=== PATIENT | male | born 1955 | race Caucasian/White ===

== ENCOUNTER 2020-03-26 00:12 | Outpatient (CLI) | payer MEDICARE, OTHER, SELFPAY ==
[2020-03-26 17:48] LABS: SARS-CoV-2 RNA PCR Negative
== END 2020-03-26 00:13 | disposition home or self-care (01) ==
LOC: ANHCOVIDDT 00:13
PROVIDERS: PCP Internal Medicine; Visit Provider Orthopaedic Surgery
DX: Z01.818 Encounter for other preprocedural examination (principal); Z11.59 Encounter for screening for other viral diseases
CPT/HCPCS: 87635; C9803; U0003

== ENCOUNTER 2020-03-26 08:43 | Outpatient (CLI) | payer MEDICARE, OTHER, SELFPAY ==
[2020-03-26 09:09] LABS: Blood Urea Nitrogen 26 mg/dL (9-20); Calcium 9.1 mg/dL (8.4-10.2); Carbon Dioxide 30 mmol/L (22-30); Chloride 103 mmol/L (98-107); Estimated Glomerular Filt Rate > 60; Glucose 129 mg/dL (75-110); Potassium 4.4 mmol/L (3.4-5.0); Sodium 138 mmol/L (137-145)
--- NOTE | 2020-03-26 09:11 | ECG_ITS ---
SINUS RHYTHM NORMAL ECG Electronically Signed On 03-26-2020 9:15:47 CDT by Rafa Hendrix D.O. NO PREVIOUS ECG AVAILABLE FOR COMPARISON [facility]
== END 2020-03-26 08:44 | disposition home or self-care (01) ==
LOC: ANHLAB 08:44
PROVIDERS: PCP Internal Medicine; Visit Provider Anesthesiology
DX: Z01.818 Encounter for other preprocedural examination (principal); E11.9 Type 2 diabetes mellitus without complications; Z20.828 Contact with and (suspected) exposure to other viral communicable diseases
CPT/HCPCS: 36415; 80048; 87635; 93005; C9803; U0003

== ENCOUNTER 2020-03-29 00:13 | Day surgery (SDC) | payer MEDICARE, OTHER, SELFPAY ==
[2020-03-16 13:33] VITALS: BMI 32.7
[2020-03-29] VITALS (7 sets, daily range): BP systolic 104–132; BP diastolic 62–72; PULSE 67–79; RESP 18–20; TEMP 36.5–36.8; O2SAT 95–100
--- NOTE | 2020-03-29 10:10 | WPDHPUPDATE1 ---
History and Physical Update Update Date/Time: 03/29/20 10:10 History and Physical has been reviewed, including an updated exam of the patient. There are NO changes in the patient's condition. Risks, benefits, and alternatives have been discussed and questions answered. Patient agrees to proceed with procedure.
[2020-03-29] MEDS: LACTATED RINGERS 1,000 ML 30 ML IV CONT ×2 (10:30→13:04)
[2020-03-29 10:43] LABS: Glucose Point of Care 117 (65-105)
--- NOTE | 2020-03-29 10:51 | WPDANESEPPF ---
Anes - Initial Pre Proc Eval Procedure: Operation Date: 03/29/20 11:30 Proposed Procedures p Left Rotator Cuff Repair With Distal Clavicle Excision - Anoop Dumont MD Date/Time: 03/29/20 10:51 Surgeon: Anoop Dumont MD Pre Op Diagnosis: Left Rotator Cuff Tear With AC Arthritis Patient Data Age: 65 Gender: M Height: 1.68 m Weight: 92 kg Allergies Allergy/AdvReac Type Severity Reaction Status Date / Time No Known Allergies Allergy Unverified 03/29/20 10:49 Home Medications Medication Instructions Recorded Confirmed Type aspirin 81 mg tablet,delayed 81 mg PO DAILY 02/11/20 03/23/20 History release metformin 500 mg tablet 500 mg PO BID 02/11/20 03/23/20 History metoprolol succinate 100 mg 100 mg PO DAILY 02/11/20 03/23/20 History capsule sprinkle, ext. release 24 hr nortriptyline 25 mg capsule 25 mg PO DAILY 02/11/20 03/23/20 History pantoprazole 40 mg tablet,delayed 40 mg PO QAM 02/11/20 03/23/20 History release rosuvastatin 40 mg tablet 40 mg PO DAILY 02/11/20 03/23/20 History vitamin B12 500 mcg-folic acid 400 1 tablet PO DAILY 02/11/20 03/23/20 History mcg tablet chlorthalidone 12.5 mg PO DAILY 03/16/20 03/23/20 History famotidine 20 mg PO HS 03/16/20 03/23/20 History lisinopril 40 mg PO DAILY 03/16/20 03/23/20 History Laboratory Tests 03/29/20 10:37 POC Capillary Glucose 117 mg/dl H mg/dl (65-105) Patient hx anesthesia problems: none Family hx anesthesia problems: none PMFSH Past Medical History Medical History (Updated 03/29/20 @ 08:07 by Xavier Kiser DO) Cardiac arrhythmia Diabetes last A1C 6.7 Hyperlipidemia Hypertension Surgical History Surgical History Hx of tonsillectomy Social History Social History Smoking status: Never smoker Alcohol intake: never Additional living arrangements comments: - [place] 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 Questions were solicited and answers provided to the satisfaction of the patient/family/POA.
--- NOTE | 2020-03-29 11:15 | WPDANESPNB ---
Anes - Peripheral Nerve Block Date/Time: 03/29/20 11:15 I have discussed with the patient/family/POA the placement of a peripheral nerve block for post-operative pain management, including associated risks, benefits, complications, and side effects. Alternative methods of post-operative analgesia were detailed. Questions were solicited and answers provided to the satisfaction of the patient/family/POA. Time-Out: A pre-procedural Time-Out was completed immediately before starting the procedure and confirmed: Patient Identification, Site, Procedure, Patient Position and the Availability of Requisite Equipment. Clinical Indications: Acute post-operative pain management requested by the operative surgeon. Nerve Block Insertion Note Anes-nerve block: interscalene left Patient position: supine Skin prep: chlorhexidine Needle: 22 gauge, stimulating, insulated echogenic needle. Needle length: 50 mm Technique: ultrasound Injectate: bupivacaine 0.5% with epi 5 mcg/ml (30cc) Observations: tolerated well Complications: none Procedure start time:: 1112 Procedure end time:: 1114
[2020-03-29] MEDS: ceFAZolin 2 GM/D5W 50 ML 2 GM/50 ML BAG IVPB (11:39)
[2020-03-29] MEDS: BUPIVACAINE/EPINEPHRINE 0.25% 50 ML VIAL INFILTRATE (12:23)
--- NOTE | 2020-03-29 13:07 | PM.PROC ---
Procedure Note - Detailed Date of procedure: 03/29/20 Pre-op diagnosis: Left Rotator Cuff Tear With AC Arthritis Post-op diagnosis: same Procedure performed: Left shoulder acromioplasty, distal clavicle excision and open repair of the rotator cuff. Description of procedure: Patient was identified and proper site identified. In the preop holding area the anesthesia team performed a left upper extremity block. He was then taken to the operating room and transferred to the or table taking care to pad the torso and extremities. After general anesthetic induction and intubation, he was put in a semi beach chair position in the usual manner for a left shoulder procedure. His head was secured taking care to neither rotate nor extend the head and neck. The left upper extremity was prepped and draped free in usual sterile fashion. The subcutaneous tissue in the area of the incision was injected with 10 cc of 0.25% Marcaine and epinephrine solution. An oblique anterior incision was made extending from the AC joint distally in line with the fibers of the deltoid. Subcutaneous tissue was sharply dissected down to the deltoid fascia. The deltoid was dissected off the anterior portion of the acromion in the distal end of the clavicle. A 2 cm split was made at the junction between the anterior and middle thirds of the deltoid. Using the microsagittal saw the last 8 mm of clavicle removed. The saw was also used to perform the acromioplasty and then the undersurface of the acromion was rasped smooth. There was abundant thickened bursa overlying the rotator cuff. This was sharply debrided long for a full inspection of the cuff. The anterior most portion of the supraspinatus was markedly thin with a palpable defect. This was released from the greater tuberosity. The tendon was freshened up and prepared for the repair. Prominent portion of the greater tuberosity was removed as well. The repair was carried out with 2. Ethibond suture passed through a bony bridge. This gave a pelletier repair which was stable as the shoulder was taken through range of motion. This was able to be accomplished with his arm at his side. The wound was irrigated with sterile NaCl solution. The deltoid was repaired back to the acromion with 2. Ethibond suture passed through bone and the remainder of the deltoid repair carried out with 2. Vicryl. Subcutaneous tissue was reapproximated with 0. V lock, 2. Strata fix and then tissue adhesive used for the skin. Sterile dressing was applied. There were no known intraoperative complications, and perioperative antibiotics were administered. Anesthesia: GETA Surgeon: Anoop Dumont MD Estimated blood loss (mL): 20 Drains: No Packing: No Pathology: none sent Complications: No immediate complications Condition: stable Disposition: PACU
[2020-03-29 15:43] LABS: Glucose Point of Care 110 (65-105)
== END 2020-03-29 14:50 | disposition home or self-care (01) ==
PROVIDERS: PCP Internal Medicine; Visit Provider Orthopaedic Surgery
PROC: (CPT 23420; principal; 2020-03-29 11:30)
DX: M75.102 Unspecified rotator cuff tear or rupture of left shoulder, not specified as traumatic (principal); G89.18 Other acute postprocedural pain; I10 Essential (primary) hypertension; E78.5 Hyperlipidemia, unspecified; E11.9 Type 2 diabetes mellitus without complications; Z79.82 Long term (current) use of aspirin; Z79.84 Long term (current) use of oral hypoglycemic drugs; E66.9 Obesity, unspecified; Z68.33 Body mass index [BMI] 33.0-33.9, adult
CPT/HCPCS: 23420; 23120; 64415; A4565; J0330; J0690; J1100; J1170; J2001; J2250; J2370; J2405; J2704; J3010; J7120

== ENCOUNTER 2020-06-01 16:00 | Outpatient (RCR) | payer MEDICARE, OTHER, SELFPAY ==
--- NOTE | 2020-03-31 13:38 | PTOPEVAL ---
Thank you for referring Anoop Lopez to [facility]. Please review, sign, date and return this plan of care LUCIANA. Pt referred to physical therapy following left rotator cuff surgery. He demonstrates impairments consistent with post-op impairments of muscle weakness, decreased left UE motion, and decreased arm function with daily activities. He requires additional skilled therapy 2x/wk x 12 wk to improve UE function. I agree with and certify that the following plan of care is medically necessary. Referring Physician Date Attending Provider: Anoop Dumont MD *PT Outpatient Evaluation Start: 03/31/20 12:36 Freq: Status: Active Protocol: Document 03/31/20 12:33 CAP (Rec: 03/31/20 13:30 CAP [id number]) Therapy Assessment Status Assessment Status Assessment Status Evaluation Outpatient Past Medical History Past Medical History Source of Past Medical History Patient,Recalled from Previous Visit, Confirmed with Patient /Family Neurological History Hx Neurological Disorders No Significant History Cardiovascular History Hx Hypercholesterolemia Yes Hx Hypertension Yes Hx Irregular Heartbeat Yes: SINUS TACH ONCE 3 YRS AGO ? ANTIHISTAMINE REACTION Respiratory History Hx Respiratory Disorders No Significant History Gastrointestinal History Hx Gastrointestinal Disorders No Significant History Genitourinary History Hx Genitourinary Disorders No Significant History Musculoskeletal History Hx Fractures Yes: LEFT TIBIAL FRACTURE AT 12 Hx Orthopedic Surgery Yes: left RTC repair 03/29/20 Hx Other Musculoskeletal Disorders Yes: LEFT ROTATOR CUFF TEAR Hematological History Hx Hematological Disorders No Significant History Endocrine History Hx Diabetes Yes HEENT History Hx Tonsillectomy Yes Integumentary History Hx Other Skin Disorders Yes: SKIN TAGS Reproductive History Hx Reproductive Disorders No Significant History Psychosocial History Hx Psychiatric Disorders No Significant History Anesthesia History Hx Anesthesia Reactions No Significant History Evaluation Information Problem Diagnosis left RTC tear Onset 2-3 years Cause unknown Additional Evaluation Detail s/p RTC repair 03/29/20 Subjective Information He has been having shoulder Query Text:As Reported By Patient/ problems for 2-3 years. He Family arrived to therapy without his sling. He was not given a HEP after his surgery. He currently requires assistance with ADL's due to
[2020-04-26 11:04] VITALS: BP_SYST 121
--- NOTE | 2020-04-26 14:47 | PTOPEVAL ---
Thank you for referring Anoop Lopez to [facility]. Please review, sign, date and return this plan of care LUCIANA. Pt has received 9 therapy visits to address UE impairments related to post-surgery recovery. He is progressing towards his therapy goals. Cont therapy 2x/wk x 8-10 wk. I agree with and certify that the following plan of care is medically necessary. Referring Physician Date Attending Provider: Anoop Dumont MD PT Re-evaluation *PT Outpatient Evaluation Start: 03/31/20 12:36 Freq: Status: Active Protocol: Document 04/26/20 11:04 ELBERT (Rec: 04/26/20 11:23 ELBERT [id number]) Therapy Assessment Status Assessment Status Assessment Status Re-evaluation Evaluation Information Problem Diagnosis left RTC tear Onset 2-3 years Cause unknown Additional Evaluation Detail s/p RTC repair 03/29/20 He has been having shoulder problems for 2-3 years. Subjective Information Reports he is using the arm Query Text:As Reported By Patient/ more with activties at home. Family He is able to perform his ADL' s without assistance. He is able to perform reaching activities to shoulder level without restrictions. He has not tried overhead reaching. He is sleeping better without increased pain. He does not require assistance to get in/ out of bed. He has not tried any yardwork. He has a f/u with on . Pain Assessment Timing of Pain Assessment Timing of Pain Assessment Re-assessment Pain Scale Pain Scale Used Numeric (1 - 10) Self Report Pain Assessment Left Shoulder(s) Reported Pain Level 0 Pain Description Aching Pain Frequency Intermittent Lowest Pain Intensity 0 Greatest Pain Intensity 3 Pain Score Pain Score 0: Self Report Upper Extremity Range of Motion Scapular/ Shoulder Range of Motion Left Scapular: Retraction Hypomobile Scapular: Protraction Hypomobile Scapular Downward Rotation Hypomobile Scapular Upward Rotation Hypomobile Shoulder Flexion - Active 140 Shoulder Flexion - Passive 142 Shoulder Extension - Active 40 Shoulder Abduction - Active 104 Shoulder Abduction - Passive 121 Shoulder Medial Rotation - Passive 70 Shoulder Lateral Rotation - Passive 20 Scapular/Shoul
[2020-05-20 12:33] VITALS: BP_SYST 153
--- NOTE | 2020-05-20 13:26 | PTOPEVAL ---
Thank you for referring Anoop Lopez to [facility]. Please review, sign, date and return this plan of care LUCIANA. Pt has received 15 therapy visits to address left shoulder impairments related to shoulder surgery. He has progress with all UE activities, range, and strength. He has achieved most of his therapy goals. Cont PT 1x/wk x 3 wk. I agree with and certify that the following plan of care is medically necessary. Referring Physician Date Attending Provider: Anoop Dumont MD PT re-assessment note *PT Outpatient Evaluation Start: 03/31/20 12:36 Freq: Status: Active Protocol: Document 05/20/20 12:33 CAP (Rec: 05/20/20 12:56 CAP [id number]) Therapy Assessment Status Assessment Status Assessment Status Re-evaluation Evaluation Information Problem Diagnosis left RTC tear Onset 2-3 years Cause unknown Additional Evaluation Detail s/p RTC repair 03/29/20 He has been having shoulder problems for 2-3 years. Subjective Information Reports he is using the arm Query Text:As Reported By Patient/ more with activties at home Family with only mild soreness and acheness. He denies any problems with reaching activities to all directions. Denies any problems with any yardwork. order to cont therapy for 1x/wk x 3 wk, but to cont with stretching 2x/day and strengthening 2x/wk. Pt is to RTW on 06/03/20. Pain Assessment Timing of Pain Assessment Timing of Pain Assessment Re-assessment Pain Scale Pain Scale Used Numeric (1 - 10) Self Report Pain Assessment Left Shoulder(s) Reported Pain Level 0 Pain Frequency Intermittent Lowest Pain Intensity 0 Greatest Pain Intensity 2 Pain Score Pain Score 0: Self Report Upper Extremity Range of Motion Scapular/ Shoulder Range of Motion Left Scapular: Retraction Hypomobile Scapular: Protraction Hypomobile Scapular Downward Rotation Hypomobile Scapular Upward Rotation Hypomobile Shoulder Flexion - Active 148 Shoulder Flexion - Passive 160 Shoulder Extension - Active 40 Shoulder Abduction - Active 144 Shoulder Abduction - Passive 153 Shoulder Medial Rotation - Active 80 Shoulder Medial Rotation - Active T12 Query Text:Reach Behind the Back Shoulder Lateral Rotation - Active 40 Shoulder Lateral Rotation - Passive 53 Shoulder
--- NOTE | 2020-06-01 16:39 | PTOPEVAL ---
Thank you for referring Anoop Lopez to [facility].? Pt has reached maximal potential with skilled therapy services with all goals achieved except 1. He is indep with his HEP and understanding of progression. Discharge skilled therapy services as this time. Please review, sign, date and return this plan of care LUCIANA. I agree with and certify that the following plan of care is medically necessary. Referring Physician Date Admitting Provider: Attending Provider: Anoop Dumont MD Discharge Note *PT Outpatient Evaluation Start: 03/31/20 12:36 Freq: Status: Active Protocol: Document 06/01/20 16:05 ELBERT (Rec: 06/01/20 16:33 ELBERT [id number]) Therapy Assessment Status Assessment Status Assessment Status Discharge Evaluation Information Problem Diagnosis left RTC tear Onset 2-3 years Cause unknown Additional Evaluation Detail s/p RTC repair 03/29/20 He has been having shoulder problems for 2-3 years. Subjective Information He reports he is performing Query Text:As Reported By Patient/ most of his normal activities Family without difficulty or pain. He is able to sleep on the left side without pain. Pain Assessment Timing of Pain Assessment Timing of Pain Assessment Re-assessment Pain Scale Pain Scale Used Numeric (1 - 10) Self Report Pain Assessment Left Shoulder(s) Reported Pain Level 0 Lowest Pain Intensity 0 Greatest Pain Intensity 0 Pain Score Pain Score 0: Self Report Upper Extremity Range of Motion Scapular/ Shoulder Range of Motion Left Shoulder Flexion - Active 160 Shoulder Extension - Active 50 Shoulder Abduction - Active 160 Shoulder Medial Rotation - Active 85 Shoulder Medial Rotation - Active T10 Query Text:Reach Behind the Back Shoulder Lateral Rotation - Active 70 Shoulder Lateral Rotation - Active T1 Query Text:Reach Behind the Head Scapular/Shoulder Range of Motion Soft Tissue Restriction Limitations Scapular/Shoulder Range of Motion rotation measured supine with Comments GH joint abd 80 dg Upper Extremity Muscle Strength Testing Scapular/Shoulder Right Scapular Retraction - Middle Trapezius 4- Good - Scapular Retraction - Lower Trapezius 3 Fair Left Scapular Retraction - Middle Trapezius 4- Good - Scapular Retraction - Lower Trapezius 3 Fair Shoulder Flexion Strength 5 Normal Shoulder Extension Strength 5 Normal Shoulder Abduction Strength 4+ Good + Shoulder Medial Rotation Strength 5 Normal Shoulder Lateral Rotation Strength 5 Normal Palpation Assessment Palpation Palpation no
== END 2020-06-02 12:38 | disposition home or self-care (01) ==
LOC: ANHPT 16:00
PROVIDERS: PCP Internal Medicine; Visit Provider Orthopaedic Surgery
DX: M25.512 Pain in left shoulder (principal); M75.102 Unspecified rotator cuff tear or rupture of left shoulder, not specified as traumatic
CPT/HCPCS: 97110; 97140; 97162

== ENCOUNTER 2021-12-06 09:59 | Emergency (ER) | payer MEDICARE, SELFPAY ==
--- NOTE | 2021-12-06 10:07 | PC.NURSE ---
Patient walks out of ED without difficulty and in no distress. patient states I am going to another hospital.
== END 2021-12-07 03:05 | disposition left against medical advice (07) ==
LOC: ANHED 10:12
PROVIDERS: PCP Physician Assistant
DX: Z53.21 Procedure and treatment not carried out due to patient leaving prior to being seen by health care provider (principal)
CPT/HCPCS: 99199

== ENCOUNTER 2023-05-21 01:37 | Observation (INO) | payer MEDICARE, SELFPAY ==
[2023-05-21] VITALS (23 sets, daily range): BP systolic 86–160; BP diastolic 48–78; PULSE 80–120; RESP 16–24; TEMP 36.1–37.7; O2SAT 90–100; BMI 32.3
--- NOTE | ~2023-05-21 | CT_ITS ---
CT of the Abdomen and Pelvis: Indication: Abdominal pain Technique: 2.5 mm axial scans were obtained through the abdomen and pelvis following intravenous adm inistration of 100 cc of Omnipaque 350. Dose reduction technique was used on this scan by utilizing a utomated exposure control and iterative reconstruction technique. The dose-length product (DLP) was 1 079.16 mGy-cm. COMPARISON: 10/24/2010 Findings: Scans through the lung bases are unremarkable. The liver, spleen, pancreas, adrenals and kidneys are within normal limits. Multiple gallstones are p resent. Possible minimal gallbladder wall thickening. There are atherosclerotic calcifications of the aorta. No lymphadenopathy. No bowel obstruction or bowel wall thickening. There is no evidence to suggest acute appendicitis. Images through the pelvis were performed. Urinary bladder unremarkable. Prostate gland is enlarged. N o ascites. Impression: Cholelithiasis. Suspected superimposed acute cholecystitis. Correlate clinically. Consider HIDA scan as indicated. Reviewed, dictated and finalized at location . Impression: Cholelithiasis. Suspected superimposed acute cholecystitis. Correlate clinicall y. Consider HIDA scan as indicated.
--- NOTE | ~2023-05-21 | XR_ITS ---
EXAMINATION: XR chest 1V portable Exam Date/Time: 05/22/2023 22:15 CDT HISTORY: increased sob;on bipap,lap supriya 2 days ago;never smoker,HTN Comparison: 04/20/2017. RESULT: Lines, tubes, and devices: None. Lungs and pleura: Moderate diffuse reticular opacities. Ill-defined segmental right hilar opacificat ion. Streaky bibasilar opacities. Bilateral costophrenic angle blunting. Cardiomediastinal silhouette: Stable. Other: No acute osseous or upper abdominal finding. IMPRESSION: Ill-defined right hilar opacity may represent infection or aspiration. Moderate interstitial edema wi th bilateral effusions. Bibasilar atelectasis/consolidation. Reviewed, dictated and finalized at location K. IMPRESSION: Ill-defined right hilar opacity may represent infection or aspiration. Moderate interstitial edema with bilateral effusions. Bibasilar atelectasis/consolidati on.
[2023-05-21 02:00] LABS: Basophils Absolute Auto 0.1 K/mm3 (0.0-0.1); Basophils Percent Auto 0.6 % (0.2-1.2); Eosinophils Absolute Auto 1.7 K/mm3 (0-0.3); Eosinophils Percent Auto 11.6 % (0-4.4); Hematocrit 43.5 % (42.0-52.0); Hemoglobin 14.5 g/dL (14.0-18.0); Immature Granulocyte Absolute 0.06 K/mm3 (0.00-0.031); Immature Granulocyte Percent A 0.4 % (0-0.5); Lymphocytes Absolute Auto 3.16 K/mm3 (0.9-3.2); Lymphocytes Percent Auto 21.9 % (18.3-44.2); Mean Corpuscular HGB Conc 33.3 g/dl (32-36); Mean Corpuscular Hemoglobin 29.2 pg (26-34); Mean Corpuscular Volume 87.5 fl (80-100); Mean Platelet Volume 9.9 fl (7.4-10.4); Monocytes Absolute Auto 1.3 K/mm3 (0.1-0.6); Neutrophils Absolute Auto 8.2 K/mm3 (1.3-6.7); Neutrophils Percent Auto 56.5 % (45.5-73.1); Platelet Count Result 228 k/mm3 (150-375); Red Blood Count 4.97 M/mm3 (4.6-6.20); Red Cell Distribution Width 13.5 % (11.5-14.5); White Blood Count 14.4 K/mm3 (4.5-10.0)
--- NOTE | 2023-05-21 02:07 | ECG_ITS ---
Measurements Intervals [place] Rate: 76 P: 50 TN: 158 QRS: 51 QRSD: 106 T: -29 QT: 360 QTc: 405 Interpretive Statements SINUS RHYTHM ST AND T-WAVE ABNORMALITY, CONSIDER ISCHEMIA ABNORMAL ECG COMPARED TO ECG 03/26/2020 09:11:56 T-WAVE ABNORMALITY NOW PRESENT Electronically Signed On 05-21-2023 10:26:42 CDT by Emeka Barbosa M.D.
--- NOTE | 2023-05-21 02:08 | ED.ABDPAIN ---
HPI - Abdominal Pain General Chief Complaint: Abdominal Pain <Gracy Cole PA-C - Last Filed: 05/21/23 04:13> Stated Complaint: upper abd pain <Gracy Cole PA-C - Last Filed: 05/21/23 04:13> Time Seen by Provider: 05/21/23 01:44 <Gracy Cole PA-C - Last Filed: 05/21/23 04:13> History of Present Illness HPI narrative: 68-year-old male reports for evaluation for epigastric abdominal pain and constipation. Patient states his last bowel movement was 4 days ago. He denies obstipation. Reports usually has a bowel movement every couple of days and this is abnormal for him. States he woke up around 2300 last night with significant epigastric abdominal pain which caused him to come to the ED. Reports in triage his pain was about 8-9 out of 10, and is currently a 5 out of 10 on my evaluation. He reports associated nausea, no vomiting. Patient reports a history of biliary colic and was sent to a surgeon in 2021. States at that time he was given the option to have a cholecystectomy, however was not having problems so opted out. He has not had any issues since. He does have a history of GERD and takes 40 mg of Protonix daily. He has not had an EGD. Denies chest pain or shortness of breath, known fever, back pain, urinary complaints. Denies history of abdominal surgeries. He also states his primary care recently switched his metformin to Farxiga last week. His last dose of metformin was 5 days ago when he started Farxiga 4 days ago. States since he started Farxiga, he has been feeling fatigued. Reports he put a message into the online portal to his PCP and is awaiting to hear back regarding possible medication changes. <Gracy Cole PA-C - Last Filed: 05/21/23 04:13> Related Data Home Medications: Home Medications Medication Instructions Recorded Confirmed aspirin 81 mg tablet,delayed 81 mg PO DAILY 02/11/20 05/21/23 release (Adult Aspirin Regimen) nortriptyline 25 mg capsule 35 mg PO QHS 02/11/20 05/21/23 pantoprazole 40 mg tablet,delayed 40 mg PO QAM 02/11/20 05/21/23 release rosuvastatin 40 mg tablet 40 mg PO DAILY 02/11/20 05/21/23 chlorthalidone 25 mg tablet 12.5 mg PO EVERY OTHER DAY 03/16/20 05/21/23 lisinopril 40 mg tablet 40 mg PO QHS 03/16/20 05/21/23 famotidine 20 mg tablet (Pepcid) 20 mg PO QHS 11/01/20 05/21/23 metoprolol succinate 100 mg 50 mg PO DAILY 11/01/21 05/21/23 capsule sprinkle, ext. release 24 hr dapagliflozin propanediol 10 mg 10 mg PO DAILY 05/21/23 05/21/23 tablet (Farxiga) nortriptyline 10 mg capsule 10 mg PO DAILY 05/21/23 05/21/23 rizatriptan 10 mg tablet 10 mg PO PRN PRN migraine 05/21/23 05/21/23 vitamin B complex (B 1 tablet PO DAILY 05/21/23 05/21/23 Complex-Vitamin B12 tablet) <Gracy Cole PA-C - Last Filed: 05/21/23 04:13> Allergies/Adverse Reactions: Allergies Allergy/AdvReac Type Severity Reaction Status Date / Time No Known Allergies Allergy Verified 05/21/23 01:37 <Gracy Cole PA-C - Last Filed: 05/21/23 04:13> Review of Systems Review of Systems: CONSTITUTIONAL: Denies fever, chills EYES: Denies visual changes, redness, or discharge. ENT: Denies rhinorrhea, congestion, sore throat, or otalgia. CARDIOVASCULAR: Denies chest pain, palpitations, or edema. RESPIRATORY: Denies cough or dyspnea. GASTROINTESTINAL: See HPI GENITOURINARY: Denies dysuria or hematuria. SKIN: Denies rash or itching. MUSCULOSKELETAL: Denies back pain, joint pain, or myalgia. NEUROLOGIC: Denies headache, numbness, dizziness, or weakness. PSYCHIATRIC: Denies anxiety or depression. <Gracy Cole PA-C - Last Filed: 05/21/23 04:13> PMFSH Past Medical History Medical History: Medical History Cardiac arrhythmia Diabetes last A1C 6.7 Hyperlipidemia Hypertension <Gracy Cole PA-C - Last Filed: 05/21/23 04:13> Surgical History Surgical History:
[2023-05-21 02:11] LABS: Alanine Aminotransferase 35 U/L (6-50); Albumin Level 4.4 g/dL (3.5-5.1); Alkaline Phosphatase 61 U/L (38-126); Anion Gap 6 mmol/L (8-16); Aspartate Amino Transferase 26 U/L (17-59); Bilirubin,Total 0.5 mg/dL (0.2-1.3); Blood Urea Nitrogen 28 mg/dL (9-20); Calcium 9.2 mg/dL (8.4-10.2); Carbon Dioxide 30 mmol/L (22-30); Chloride 99 mmol/L (98-107); Estimated CRCL calculation 46 ml/min; Estimated Glomerular Filt Rate 47; Glucose 192 mg/dL (65-110); Lipase 88 U/L (23-300); Potassium 3.5 mmol/L (3.4-5.0); Sodium 135 mmol/L (137-145)
[2023-05-21] MEDS: SODIUM CHLORIDE 0.9% IV 1,000 ML 999 ML IV CONT (02:11)
[2023-05-21] MEDS: ACETAMINOPHEN 500 MG TABLET 1000 MG PO (02:11)
[2023-05-21] MEDS: ONDANSETRON INJ 4 MG/2 ML VIAL IV PUSH ×2 (02:13→04:34)
[2023-05-21 02:22] LABS: Appearance Urine Clear (Clear); Bilirubin Urine Negative (Negative); Blood Urine Negative (Negative); Color Urine Yellow (Yellow); Glucose Urine UA 3+ mg/dL (Negative); Ketones Urine Negative (Negative); Leukocyte Esterase Ur Negative LEU/UL (Negative); Nitrate Urine Negative (Negative); Protein Urine Negative (Negative); Specific Grav Ur 1.034 (1.001-1.035); pH Urine 5.5 (5.0-9.0)
[2023-05-21 02:46] LABS: Add Urine Microscopic? NO
[2023-05-21 03:14] LABS: Troponin I < 0.012 ng/mL (0.000-0.034)
--- NOTE | 2023-05-21 03:49 | PC.NURSE ---
Patient stated that his pain is coming back and flaring up. Notified EDP Dr. Stone
[2023-05-21] MEDS: MORPHINE SULFATE (*CRX) 4 MG/ML INJ IV PUSH (03:56)
[2023-05-21] MEDS: HYDROmorphone HCL INJ (*CRX) 1 MG/ML SYR IV PUSH (04:35)
[2023-05-21] MEDS: PIPERACILLN/TAZ 3.375GM/NS50ML 3.375 GM/50 ML BAG IVPB ×3 (04:38→20:56)
--- NOTE | 2023-05-21 05:18 | PC.NURSE ---
Patient's SPO2 began to drop to 85-88%. Per patient he was diagnosed with sleep apnea in 2006 and uses a CPAP when he sleeps. Patient was then put on 3L/min O2 via nasal cannula. Patient's SPO2 now reading 97%.
[2023-05-21] MEDS: SODIUM CHLORIDE 0.9% IV 1,000 ML 125 ML IV CONT ×2 (06:01→12:53)
--- NOTE | 2023-05-21 06:41 | ADMGEN ---
This patient, Anoop Lopez, was admitted to [facility] Surg Room 303-01. Patient/family oriented to hospital policies and general routines including ID bracelet, bed and alarms, visiting hours, pain management, procedures, bathroom and other care routines, personal items, smoking policy, room service/diet, and visiting hours. Information on how to activate the Rapid Response Team has been discussed. Patient/Family are encouraged to report perceived risks to care and to ask questions if they do not understand what they are told or what they should do.
--- NOTE | 2023-05-21 10:17 | PM.IMHP ---
H&P: HPI History of Present Illness Date/Time: 05/21/23 10:17 Chief Complaint: Right-sided abdominal pain Narrative: 68-year-old male with past medical history of hypertension, diabetes who presented to ER with complaints of right-sided abdominal pain that started around 11:00 p.m. last night. Pain was localized, nonradiating. No associated nausea vomiting fever chills. Patient did have some chills in the ER. CT of the abdomen shows acute cholecystitis. General surgery consulted Review of Systems Review of Systems: CONSTITUTIONAL: Denies fever, chills EYES: Denies visual changes, redness, or discharge. ENT: Denies rhinorrhea, congestion, sore throat, or otalgia. CARDIOVASCULAR: Denies chest pain, palpitations, or edema. RESPIRATORY: Denies cough or dyspnea. GASTROINTESTINAL: See HPI GENITOURINARY: Denies dysuria or hematuria. SKIN: Denies rash or itching. MUSCULOSKELETAL: Denies back pain, joint pain, or myalgia. NEUROLOGIC: Denies headache, numbness, dizziness, or weakness. PSYCHIATRIC: Denies anxiety or depression. [facility] Past Medical History Medical History (Updated 05/21/23 @ 10:19 by Kenyon Zamarripa MD) Cardiac arrhythmia Diabetes last A1C 6.7 Hyperlipidemia Hypertension Surgical History Surgical History Hx of tonsillectomy Family History Family History Mother Hypertension Father Heart disease Grandparent Hypertension Diabetes mellitus Social History Social History Smoking status: Never smoker Alcohol intake: never Substance use: never Substance use type: does not use Lack of Transportation: No Lack of Food: Never True Current Housing: I Have Housing Concerned About Future Housing: No Difficulty Paying Gas/Electric Bills: No Difficulty Paying for Meds: No Currently Unemployed: No Education: Trade/Vocational Certificate Difficulty w/ Childcare or Family Care: No Living arrangements: with family Additional living arrangements comments: - Morena Cuff Occupation/Education: retired Additional occupation/education comments: retired [employer] Gender identity (if verbalized by the patient): Male Spiritual care concerns: No Meds Home Medications and Allergies Home Medications Medication Instructions Recorded Confirmed Type aspirin 81 mg tablet,delayed 81 mg PO DAILY 02/11/20 05/21/23 History release (Adult Aspirin Regimen) nortriptyline 25 mg capsule 35 mg PO QHS 02/11/20 05/21/23 History pantoprazole 40 mg tablet,delayed 40 mg PO QAM 02/11/20 05/21/23 History release rosuvastatin 40 mg tablet 40 mg PO DAILY 02/11/20 05/21/23 History chlorthalidone 25 mg tablet 12.5 mg PO EVERY OTHER DAY 03/16/20 05/21/23 History lisinopril 40 mg tablet 40 mg PO QHS 03/16/20 05/21/23 History famotidine 20 mg tablet (Pepcid) 20 mg PO QHS 11/01/20 05/21/23 History metoprolol succinate 100 mg 50 mg PO DAILY 11/01/21 05/21/23 History capsule sprinkle, ext. release 24 hr dapagliflozin propanediol 10 mg 10 mg PO DAILY 05/21/23 05/21/23 History tablet (Farxiga) nortriptyline 10 mg capsule 10 mg PO DAILY 05/21/23 05/21/23 History rizatriptan 10 mg tablet 10 mg PO PRN PRN migraine 05/21/23 05/21/23 History vitamin B complex (B 1 tablet PO DAILY 05/21/23 05/21/23 History Complex-Vitamin B12 tablet) Allergies Allergy/AdvReac Type Severity Reaction Status Date / Time No Known Allergies Allergy Verified 05/21/23 01:37 Vital Signs Vital Signs - 24 hr 05/21/23 01:42 05/21/23 02:07 05/21/23 03:32 Temperature 97.0 F L 98.1 F Pulse Rate 80 82 84 Respiratory Rate 16 21 H 23 H Blood Pressure 154/73 H 160/78 H 144/74 H Pulse Oximetry 97 100 95 Oxygen Delivery Room Air Oxygen Flow Rate 05/21/23 04:04 05/21/23 05:18 05/21/23 05:27 Temperature Pulse Rate 100 112 H
[2023-05-21 11:29] LABS: Glucose Point of Care 205 mg/dl (65-105)
--- NOTE | 2023-05-21 12:03 | PM.CNGS ---
Assessment and Plan Assessment and plan (1) Acute cholecystitis: Code(s): K81.0 - Acute cholecystitis Status: Acute Assessment and Plan: I have reviewed the CT and discussed the findings with the patient. He has evidence of acute calculous cholecystitis. He is feeling slightly better but is still having some constant right upper quadrant pain. I discussed options of trial of low-fat diet versus proceeding with surgery during this admission. Patient would like to proceed with surgery since this has happened multiple times in past. I have recommended proceeding with laparoscopic cholecystectomy, possible open. I discussed the procedure, risks, benefits, and alternatives. Questions were answered. (2) Diabetes: Code(s): E11.9 - Type 2 diabetes mellitus without complications Status: Acute (3) Hypertension: Code(s): I10 - Essential (primary) hypertension Status: Acute History of Present Illness Consult details Consult date: 05/21/23 Reason for consult: other (cholecystitis) Requesting physician: Karyn Stone MD Narrative: This is a 68-year-old man who I am asked to see for cholecystitis. He presented to the emergency department early this morning with abdominal pain that started around 11:00 p.m. last night. His pain is located in the right upper quadrant. He had eaten pizza for dinner prior to this. He did have an episode like this about 1-2 years ago, but he thinks that the imaging only showed gallbladder sludge. He did have discussions with the surgeon at that time but ultimately did not decide to proceed with laparoscopic cholecystectomy. He had been doing well up until now. He denies any change in the color of his urine or stool. He denies any jaundice. Denies any fevers or chills. In the emergency department a CT did show evidence of cholelithiasis and mild gallbladder wall thickening. He did have an elevated white blood count at 14.4. He was admitted for further treatment. Review of Systems Review of Systems: All systems reviewed & are unremarkable except as noted in HPI and below Eyes: Eyes: Denies change in vision ENT: Denies hearing loss, Denies neck pain and Denies sore throat Cardiovascular: Cardiovascular: Denies chest pain and Denies dyspnea Respiratory: Respiratory: Denies cough, Denies dyspnea and Denies wheezing Gastrointestinal: Gastrointestinal: Reports as per HPI Genitourinary: Genitourinary: Denies hematuria and Denies dysuria Musculoskeletal: Musculoskeletal: Denies arthralgias, Denies joint swelling and Denies neck pain Allergic/Immunologic: Allergic/Immunologic: Denies wheezing PMFSH Past Medical History Medical History Cardiac arrhythmia Diabetes last A1C 6.7 Hyperlipidemia Hypertension Surgical History Surgical History Hx of tonsillectomy Family History Family History Mother Hypertension Father Heart disease Grandparent Hypertension Diabetes mellitus Social History Social History Smoking status: Never smoker Alcohol intake: never Substance use: never Substance use type: does not use Lack of Transportation: No Lack of Food: Never True Current Housing: I Have Housing Concerned About Future Housing: No Difficulty Paying Gas/Electric Bills: No Difficulty Paying for Meds: No Currently Unemployed: No Education: Trade/Vocational Certificate Difficulty w/ Childcare or Family Care: No Living arrangements: with family Additional living arrangements comments: - Morena Lopez Occupation/Education: retired 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
[2023-05-21] MEDS: ACETAMINOPHEN 325 MG TABLET 650 MG PO (12:54)
--- NOTE | 2023-05-21 13:39 | WPDHPUPDATE1 ---
History and Physical Update Update Date/Time: 05/21/23 13:39 History and Physical has been reviewed, including an updated exam of the patient. There are NO changes in the patient's condition. Risks, benefits, and alternatives have been discussed and questions answered. Patient agrees to proceed with procedure.
--- NOTE | 2023-05-21 15:10 | PC.NURSE ---
To OR per stretcher by [facility] ALEXANDER, IV 18g.
--- NOTE | 2023-05-21 15:51 | WPDANESEPPF ---
Anes - Initial Pre Proc Eval Procedure: Operation Date: 05/21/23 17:00 Proposed Procedures p Laparoscopic Cholecystectomy, Possible Open - Dudley Betancourt DO Date/Time: 05/21/23 15:51 Surgeon: Donna Tejada DO Pre Op Diagnosis: Acute Cholecystitis Patient Data Age: 68 Gender: M Height: 1.7 m Weight: 93.8 kg Last Vital Signs Temp 37.3 C 05/21/23 15:31 Pulse 104 H 05/21/23 15:31 Resp 16 05/21/23 15:31 BP 102/50 L 05/21/23 15:31 Pulse Ox 92 05/21/23 15:31 O2 Del Method Room Air 05/21/23 15:31 O2 Flow Rate 2 05/21/23 08:00 Allergies Allergy/AdvReac Type Severity Reaction Status Date / Time No Known Allergies Allergy Verified 05/21/23 01:37 Home Medications Medication Instructions Recorded Confirmed Type aspirin 81 mg tablet,delayed 81 mg PO DAILY 02/11/20 05/21/23 History release (Adult Aspirin Regimen) nortriptyline 25 mg capsule 35 mg PO QHS 02/11/20 05/21/23 History pantoprazole 40 mg tablet,delayed 40 mg PO QAM 02/11/20 05/21/23 History release rosuvastatin 40 mg tablet 40 mg PO DAILY 02/11/20 05/21/23 History chlorthalidone 25 mg tablet 12.5 mg PO EVERY OTHER DAY 03/16/20 05/21/23 History lisinopril 40 mg tablet 40 mg PO QHS 03/16/20 05/21/23 History famotidine 20 mg tablet (Pepcid) 20 mg PO QHS 11/01/20 05/21/23 History metoprolol succinate 100 mg 50 mg PO DAILY 11/01/21 05/21/23 History capsule sprinkle, ext. release 24 hr dapagliflozin propanediol 10 mg 10 mg PO DAILY 05/21/23 05/21/23 History tablet (Farxiga) nortriptyline 10 mg capsule 10 mg PO DAILY 05/21/23 05/21/23 History rizatriptan 10 mg tablet 10 mg PO PRN PRN migraine 05/21/23 05/21/23 History vitamin B complex (B 1 tablet PO DAILY 05/21/23 05/21/23 History Complex-Vitamin B12 tablet) Laboratory Tests 05/21/23 05/21/23 05/21/23 01:48 01:49 02:00 WBC 14.4 H K/mm3 (4.5-10.0) RBC 4.97 M/mm3 (4.6-6.20) Hgb 14.5 g/dL (14.0-18.0) Hct 43.5 % (42.0-52.0) MCV 87.5 fl (80-100) MCH 29.2 pg (26-34) MCHC 33.3 g/dl (32-36) RDW 13.5 % (11.5-14.5) Plt Count 228 k/mm3 (150-375) MPV 9.9 fl (7.4-10.4) Immature Gran % (Auto) 0.4 % (0-0.5) Neut % (Auto) 56.5 % (45.5-73.1) Lymph % (Auto) 21.9 % (18.3-44.2) [place] % (Auto) 9.0 H % (2.6-8.5) Eos % (Auto) 11.6 H % (0-4.4) Baso % (Auto) 0.6 % (0.2-1.2) Lymph # (Auto) 3.16 K/mm3 (0.9-3.2) [place] # (Auto) 1.3 H K/mm3 (0.1-0.6) Eos # (Auto) 1.7 H K/mm3 (0-0.3) Baso # (Auto) 0.1 K/mm3 (0.0-0.1) Abs Immat Gran (auto) 0.06 H K/mm3 (0.00-0.031) Absolute Neuts (auto) 8.2 H K/mm3 (1.3-6.7) Absolute Nucleated RBC 0.0 K/mm3 (0.0-0.012) Nucleated RBC % 0.0 % (0.0-0.2) Sodium 135 L mmol/L (137-145) Potassium 3.5 mmol/L (3.4-5.0) Chloride 99 mmol/L (98-107) Carbon Dioxide 30 mmol/L (22-30) Anion Gap 6 L mmol/L (8-16) BUN 28 H mg/dL (9-20) Creatinine 1.50 H mg/dL (0.7-1.3) Estim Creat Clear Calc 46 ml/min Estimated GFR 47 L (59 - ) Glucose 192 H mg/dL (65-110) POC Capillary Glucose Calcium 9.2 mg/dL (8.4-10.2) Total Bilirubin 0.5 mg/dL (0.2-1.3) AST 26 U/L (17-59) ALT 35 U/L (6-50) Alkaline Phosphatase 61 U/L (38-126) Troponin I < 0.012 ng/mL (0.000-0.034) Total Protein 8.0 g/dL (6.3-8.2) Albumin 4.4 g/dL (3.5-5.1) Lipase 88 U/L (23-300) Urine Color Yellow (Yellow) Urine Appearance Clear (Clear) Urine pH 5.5 (5.0-9.0) Ur Specific [place] 1.034 (1.001-1.035) Urine Protein Negative mg/dL
[2023-05-21] MEDS: LACTATED RINGERS 1,000 ML 30 ML IV CONT ×2 (15:59→18:29)
[2023-05-21] MEDS: BUPIVACAINE/EPINEPHRINE 0.5% 10 ML VIAL 30 ML INFILTRATE (17:24)
--- NOTE | 2023-05-21 18:17 | W.PM.PROC2 ---
Procedure Note - Detailed Date of Procedure 05/21/23 Pre-op Diagnosis Acute Cholecystitis Post-op Diagnosis Same Procedure Performed Laparoscopic Cholecystectomy Surgeon Dudley Betancourt, DO Anesthesia General and Local (0.5% bupivacaine) Indications This is a 68-year-old man who presented to the emergency department with right upper quadrant pain that started last night. He began experiencing the several hours after eating pizza for dinner. He had 1 episode similar to this about 1 year ago. In the emergency department he was noted to have an elevated white blood count and CT showed evidence of cholelithiasis and cholecystitis. He was admitted for further treatment. Discussions were made with the patient about treatment options and decision was made to proceed with laparoscopic cholecystectomy, possible open. Findings Laparoscopic cholecystectomy was performed. Gallbladder had some wall thickening and edema. There were gallstones within the gallbladder. The cystic duct appeared normal. Gallbladder was removed and sent to the lab for pathology. Description of Procedure Procedure as well as risks, benefits, and alternatives were discussed with patient. Written consent was obtained and placed in chart prior to procedure. The patient was brought back to surgical suite. Patient was placed in supine position on operating table. Time-out was done to confirm patient and procedure. Patient was then intubated by the anesthesia department. Abdomen was prepped and draped in sterile fashion using chlorhexidine prep. 0.5% bupivacaine with epinephrine was infiltrated at each site of incision. A 5 millimeter incision was made near the umbilicus, and a 5 millimeter Optiview trocar was advanced through the abdominal layers under direct visualization. Once inside the abdominal cavity, carbon dioxide was insufflated to create a pneumoperitoneum. The camera was inserted and the abdomen was inspected. No immediate abnormalities were identified. The patient was placed in reverse Trendelenburg position and rotated slightly to the left. An 11 millimeter incision was made in the subxiphoid region, and an 11 millimeter trocar was inserted under direct visualization. Two 5 millimeter incisions were made in the right upper quadrant, and two 5 millimeter trocars were inserted under direct visualization. The gallbladder was identified and grasped at the fundus and retracted superiorly. It was then grasped at the infundibulum retracted laterally. Careful dissection around the neck of the gallbladder was performed using blunt dissection with a [place] grasper and hook electrocautery. The cystic duct was identified, and a window was created behind it. The cystic artery was also identified and a window was created behind it. The critical view of safety was identified, visualizing the cystic duct running directly into the neck of the gallbladder, and the cystic artery running directly into the wall of the gallbladder. A 5 millimeter clip cnmt was then used to place 2 clips proximally and 1 clip distally on both the cystic duct and cystic artery. They were then both transected using endoscopic scissors. Once safely away from the bob hepatitis, the gallbladder was dissected free from the liver bed using hook electrocautery. Hemostasis was achieved along the way. The gallbladder was removed completely and then removed through the subxiphoid port. The liver bed was then inspected. Hemostasis appeared adequate, and our clips appeared secure. The area was gently irrigated with sterile saline. No other abnormalities were seen. The patient was flattened out in bed, and 1 final inspection was made around the abdominal cavity. The subxiphoid port was removed, and a Kirby Lisa cone was used to approximate the fascia with an 0-Vicryl simple interrupted suture. The remaining ports were then removed under direct visualization, the camera was removed, and the pneumoperitoneum
[2023-05-21 18:44] LABS: Glucose Point of Care 163 mg/dl (65-105)
[2023-05-21] MEDS: fentaNYL CITRATE INJ (*CRX) 100 MCG/2 ML VIAL 25 MCG IV PUSH ×3 (19:04→19:30)
[2023-05-21] MEDS: LACTATED RINGERS 1,000 ML 100 ML IV CONT (20:14)
[2023-05-21] MEDS: HYDROcodone/acetaminophen (*CRX) 5-325 MG TABLET 1 TAB PO (20:56)
[2023-05-21 21:10] LABS: Glucose Point of Care 161 mg/dl (65-105)
[2023-05-21 21:34] LABS: Hemoglobin A1C 8.7 % (<5.7)
[2023-05-21] MEDS: FAMOTIDINE 20 MG TABLET PO (22:00)
[2023-05-21] MEDS: NORTRIPTYLINE HCL 25 MG CAPSULE PO (22:00)
[2023-05-22] VITALS (8 sets, daily range): BP systolic 118–148; BP diastolic 60–77; PULSE 68–118; RESP 18–21; TEMP 35.6–37.6; O2SAT 90–94
[2023-05-22] MEDS: PIPERACILLN/TAZ 3.375GM/NS50ML 3.375 GM/50 ML BAG IVPB ×3 (02:36→23:15)
[2023-05-22] MEDS: HYDROcodone/acetaminophen (*CRX) 5-325 MG TABLET 1 TAB PO ×2 (02:37→20:17)
[2023-05-22 07:23] LABS: Hematocrit 39.2 % (42.0-52.0); Hemoglobin 12.4 g/dL (14.0-18.0); Mean Corpuscular HGB Conc 31.6 g/dl (32-36); Mean Corpuscular Hemoglobin 28.7 pg (26-34); Mean Corpuscular Volume 90.7 fl (80-100); Mean Platelet Volume 10.7 fl (7.4-10.4); Platelet Count Result 181 k/mm3 (150-375); Red Blood Count 4.32 M/mm3 (4.6-6.20); Red Cell Distribution Width 13.7 % (11.5-14.5); White Blood Count 15.4 K/mm3 (4.5-10.0)
[2023-05-22 07:31] LABS: Alanine Aminotransferase 693 U/L (6-50); Albumin Level 3.7 g/dL (3.5-5.1); Alkaline Phosphatase 128 U/L (38-126); Anion Gap 9 mmol/L (8-16); Aspartate Amino Transferase 573 U/L (17-59); Bilirubin,Total 4.7 mg/dL (0.2-1.3); Blood Urea Nitrogen 29 mg/dL (9-20); Calcium 8.1 mg/dL (8.4-10.2); Carbon Dioxide 28 mmol/L (22-30); Chloride 102 mmol/L (98-107); Estimated CRCL calculation 50 ml/min; Estimated Glomerular Filt Rate 50; Glucose 141 mg/dL (65-110); Lipase 71 U/L (23-300); Potassium 3.9 mmol/L (3.4-5.0); Sodium 139 mmol/L (137-145)
[2023-05-22 07:37] LABS: Glucose Point of Care 149 mg/dl (65-105)
[2023-05-22 07:38] LABS: Band Neutrophils Percent 29 % (0-6); Lymphocytes Absolute Manual 0.77 K/mm3 (1.1-4.5); Monocytes Absolute Manual 0.46 K/mm3 (0.1-0.90); Monocytes Percent Manual 3 % (3-9); Neutrophils Absolute Manual 14.16 K/mm3 (1.3-6.7); Neutrophils Percent Manual 63 % (46-73); Platelet Estimate Adequate (Adequate); Total Cells Counted 100
[2023-05-22 07:39] LABS: Schistocytes None Seen (NORMAL)
[2023-05-22] MEDS: ROSUVASTATIN 10 MG TABLET 40 MG PO (09:07)
[2023-05-22] MEDS: METOPROLOL SUCCINATE EXT REL 50 MG TABCR PO (09:07)
[2023-05-22] MEDS: EMPAGLIFLOZIN 25 MG TABLET BY MOUTH (09:08)
[2023-05-22] MEDS: VITAMIN B COMPLEX CAPSULE 1 CAP PO (09:08)
--- NOTE | 2023-05-22 09:11 | WPDANESPN ---
Anes - Prog Note Post-Op Date/Time: 05/22/23 09:11 Cardiovascular status: normal Respiratory status: normal Airway patency: baseline Mental status: baseline Post-Op hydration status: normal Vital Signs: Last Vital Signs Temp 35.6 C L 05/22/23 07:45 Pulse 68 05/22/23 09:07 Resp 18 05/22/23 07:45 BP 141/77 H 05/22/23 07:45 Pulse Ox 94 05/22/23 07:45 O2 Del Method CPAP 05/21/23 22:50 O2 Flow Rate 2 05/21/23 20:00 Pain Score (VAS): 0 I/O: Intake & Output 05/21/23 05/22/23 05/22/23 23:59 07:59 15:59 Intake Total 50 650 Output Total 800 Balance -750 650 Laboratory Tests 05/22/23 06:11 05/22/23 06:11 05/21/23 05/21/23 05/21/23 01:48 11:12 18:42 WBC RBC Hgb Hct MCV MCH MCHC RDW Plt Count MPV Immature Gran % (Auto) Neut % (Auto) Lymph % (Auto) [place] % (Auto) Eos % (Auto) Baso % (Auto) Lymph # (Auto) [place] # (Auto) Eos # (Auto) Baso # (Auto) Abs Immat Gran (auto) Absolute Neuts (auto) Absolute Nucleated RBC Total Counted Neutrophils % (Manual) Band Neutrophils % Lymphocytes % (Manual) Monocytes % (Manual) Nucleated RBC % Abs Neuts (Manual) Abs Lymphs (Manual) Abs Monocytes (Manual) Platelet Estimate Schistocytes Sodium Potassium Chloride Carbon Dioxide Anion Gap BUN Creatinine Estim Creat Clear Calc Estimated GFR Glucose POC Capillary Glucose 205 H 163 H Hemoglobin A1c 8.7 H Calcium Total Bilirubin AST ALT Alkaline Phosphatase Total Protein Albumin Lipase 05/21/23 05/22/23 05/22/23 21:05 06:11 07:34 WBC 15.4 H RBC 4.32 L Hgb 12.4 L Hct 39.2 L MCV 90.7 MCH 28.7 MCHC 31.6 L RDW 13.7 Plt Count 181 MPV 10.7 H Immature Gran % (Auto) Not Reportable Neut % (Auto) Not Reportable Lymph % (Auto) Not Reportable [place] % (Auto) Not Reportable Eos % (Auto) Not Reportable Baso % (Auto) Not Reportable Lymph # (Auto) Not Reportable [place] # (Auto) Not Reportable Eos # (Auto) Not Reportable Baso # (Auto) Not Reportable Abs Immat Gran (auto) Not Reportable Absolute Neuts (auto) Not Reportable Absolute Nucleated RBC Not Reportable Total Counted 100 Neutrophils % (Manual) 63 Band Neutrophils % 29 H Lymphocytes % (Manual) 5.0 L Monocytes % (Manual) 3 Nucleated RBC % Not Reportable Abs Neuts (Manual) 14.16 H Abs Lymphs (Manual) 0.77 L Abs Monocytes (Manual) 0.46 Platelet Estimate Adequate Schistocytes None seen Sodium 139 Potassium 3.9 Chloride 102 Carbon Dioxide 28 Anion Gap 9 BUN 29 H Creatinine 1.40 H Estim Creat Clear Calc 50 Estimated GFR 50 L Glucose 141 H POC Capillary Glucose 161 H 149 H Hemoglobin A1c Calcium 8.1 L Total Bilirubin 4.7 H AST 573 H ALT 693 H Alkaline Phosphatase 128 H Total Protein 7.0 Albumin 3.7 Lipase 71 Post-procedural complaints: none Patient Feedback: Patient satisfied with anesthetic care.
--- NOTE | 2023-05-22 09:12 | PM.PNGS ---
Progress Note: A&P Assessment and Plan (1) Acute cholecystitis: Code(s): K81.0 - Acute cholecystitis Status: Acute Assessment and Plan: Patient doing well but liver enzymes significantly elevated when they were normal on initial presentation. He is overall asymptomatic and not presenting like obstructive jaundice. Will repeat liver enzymes at 3pm today. Might need to consider MRCP tomorrow if enzymes not significantly improved. (2) Hyperbilirubinemia: Code(s): E80.6 - Other disorders of bilirubin metabolism Status: Acute (3) Hypertension: Code(s): I10 - Essential (primary) hypertension Status: Acute (4) Diabetes: Code(s): E11.9 - Type 2 diabetes mellitus without complications Status: Acute Subjective Subjective Date/Time Seen: 05/22/23 09:12 Interval history: Feeling better. Does notice dark urine. Pain improving. Tolerating diet. Exam GI: Inspection: non-distended GI Palp: Yes Soft to palpation, Yes Tenderness to palpation present (GI) (incisional) and No Guarding due to palpation present (GI) Skin: Other: Jaundice Objective Data Vital Signs Vital Signs: Vital Signs - 24 hr 05/21/23 14:00 05/21/23 15:31 05/21/23 18:29 Temperature 36.2 C L 37.3 C 36.4 C L Pulse Rate 103 H 104 H 100 Respiratory Rate 16 16 21 H Blood Pressure 101/59 L 102/50 L 86/48 L Pulse Oximetry 97 92 100 Oxygen Delivery Room Air Simple Face Mask Oxygen Flow Rate 8 05/21/23 18:44 05/21/23 19:00 05/21/23 19:15 Temperature Pulse Rate 104 H 101 H 90 Respiratory Rate 20 18 18 Blood Pressure 106/62 118/62 112/67 Pulse Oximetry 99 95 98 Oxygen Delivery Simple Face Mask Nasal Cannula Nasal Cannula Oxygen Flow Rate 8 2 2 05/21/23 19:32 05/21/23 20:08 05/21/23 21:08 Temperature 36.4 C 36.5 C Pulse Rate 90 94 86 Respiratory Rate 16 18 16 Blood Pressure 117/66 141/75 H 140/76 Pulse Oximetry 98 92 97 Oxygen Delivery Nasal Cannula Oxygen Flow Rate 2 05/21/23 21:12 05/21/23 20:00 05/21/23 23:27 Temperature 36.5 C 36.3 C L Pulse Rate 86 87 Respiratory Rate 16 16 Blood Pressure 140/76 128/70 Pulse Oximetry 97 94 90 Oxygen Delivery Nasal Cannula Oxygen Flow Rate 2 05/21/23 22:50 05/22/23 03:39 05/22/23 07:45 Temperature 36.4 C 35.6 C L Pulse Rate 84 94 Respiratory Rate 18 18 18 Blood Pressure 133/67 141/77 H Pulse Oximetry 91 94 Oxygen Delivery CPAP Oxygen Flow Rate 05/22/23 09:07 Temperature Pulse Rate 68 Respiratory Rate Blood Pressure Pulse Oximetry Oxygen Delivery Oxygen Flow Rate Intake/Output Intake/Output: Intake & Output 05/19/23 05/20/23 05/21/23 05/22/23 23:59 23:59 23:59 23:59 Intake Total 2100 650 Output Total 800 Balance 1300 650 Meds/Results Medications: Active Medications Generic Name Dose Route Start Last Admin Trade Name Freq PRN Reason Stop Dose Admin Acetaminophen 650 mg 05/21/23 05:45 05/21/23 12:54 Acetaminophen 325 Mg Tablet PO 650 mg Q4H PRN Administration Mild Pain (1-3) or Fever Hydrocodone Bitart/Acetaminophen 1 tab 05/21/23 19:23 05/22/23 02:37 Hydrocodone/Acetaminophen (*Crx) 5-325 Mg Tablet PO 1 tab Q4H PRN Administration Pain Rated 4-6 Hydrocodone Bitart/Acetaminophen 1 tab 05/21/23 19:23 Hydrocodone/Acetaminophen (*Crx) 10-325 Mg Tablet PO Q6H PRN Pain Rated 7-10 Dextrose 12.5 gm 05/21/23 21:13 Dextrose 50% 25 Gm/50 Ml Syringe IV PUSH PRN PRN Hypoglycemia Protocol Empagliflozin 25 mg 05/22/23 09:00 05/22/23 09:08 Empagliflozin 25 Mg Tablet BY MOUTH 25 mg DAILY NICK Administration Famotidine 20 mg 05/21/23 21:15 05/21/23 22:00 Famotidine 20 Mg Tablet PO 20 mg QHS NICK Administration Glucagon 1 mg 05/21/23 21:13 Glucagon For Inj 1 Mg Vial IM PRN PRN Hypoglycemia Protocol Glucose 15 gm 05/21/23 21:13 Glucose Oral Gel 15 Gm Of G
[2023-05-22] MEDS: ACETAMINOPHEN 325 MG TABLET 650 MG PO (10:26)
--- NOTE | 2023-05-22 10:46 | PM.IMPN ---
Progress Note: A&P Assessment and Plan (1) Acute cholecystitis: Code(s): K81.0 - Acute cholecystitis Status: Acute Assessment and Plan: General surgery consulted. Status post laparoscopic cholecystectomy . Doing well. Discontinue Zosyn. (2) Hyperbilirubinemia: Code(s): E80.6 - Other disorders of bilirubin metabolism Status: Acute Assessment and Plan: Repeat labs this afternoon. Patient may need MRCP (3) Hyperlipidemia: Code(s): E78.5 - Hyperlipidemia, unspecified Status: Acute Assessment and Plan: Resume home meds postsurgery (4) Diabetes: Code(s): E11.9 - Type 2 diabetes mellitus without complications Status: Acute Assessment and Plan: Resume home meds post surgery (5) Hypertension: Code(s): I10 - Essential (primary) hypertension Status: Acute Assessment and Plan: Blood pressure stable. Resume home meds post surgery Plan Code-full Subjective Date/time seen: 05/22/23 10:46 Interval history: Minimal abdominal pain Review of Systems Review of Systems: All systems reviewed & are unremarkable except as noted in HPI and below Eyes: Eyes: Denies change in vision ENT: Denies hearing loss, Denies neck pain and Denies sore throat Cardiovascular: Cardiovascular: Denies chest pain and Denies dyspnea Respiratory: Respiratory: Denies cough, Denies dyspnea and Denies wheezing Gastrointestinal: Gastrointestinal: Reports as per HPI Genitourinary: Genitourinary: Denies hematuria and Denies dysuria Musculoskeletal: Musculoskeletal: Denies arthralgias, Denies joint swelling and Denies neck pain Allergic/Immunologic: Allergic/Immunologic: Denies wheezing Exam Narrative: GENERAL: Well-appearing, in no acute distress. Patient resting comfortably in exam bed. He is pleasant and conversational. HEAD: Normocephalic EYES: PERRLA ENT: Nares clear. Mucous membranes moist. Oropharynx without tonsillar hypertrophy exudate or other lesions. NECK: Supple. CHEST: No respiratory distress. Clear to auscultation, no adventitious breath sounds. HEART: Regular rate and rhythm. No murmur heard. Normal peripheral pulses. ABDOMEN: Normal active bowel sounds. Abdomen is soft with tenderness in the right upper quadrant with guarding. Negative Kevin's. No rigidity or rebound tenderness. No peritoneal signs. No overlying skin changes. No CVA tenderness. EXTREMITIES: Normal range of motion. No edema. SKIN: Warm, dry, no rash. NEURO: No focal deficits. Alert and oriented x3. PSYCH: Normal mood and affect. Objective Data Vital Signs Vital Signs: Vital Signs - 24 hr 05/21/23 14:00 05/21/23 15:31 05/21/23 18:29 Temperature 97.2 F L 99.1 F 97.5 F L Pulse Rate 103 H 104 H 100 Respiratory Rate 16 16 21 H Blood Pressure 101/59 L 102/50 L 86/48 L Pulse Oximetry 97 92 100 Oxygen Delivery Room Air Simple Face Mask Oxygen Flow Rate 8 05/21/23 18:44 05/21/23 19:00 05/21/23 19:15 Temperature Pulse Rate 104 H 101 H 90 Respiratory Rate 20 18 18 Blood Pressure 106/62 118/62 112/67 Pulse Oximetry 99 95 98 Oxygen Delivery Simple Face Mask Nasal Cannula Nasal Cannula Oxygen Flow Rate 8 2 2 05/21/23 19:32 05/21/23 20:08 05/21/23 21:08 Temperature 97.6 F 97.7 F Pulse Rate 90 94 86 Respiratory Rate 16 18 16 Blood Pressure 117/66 141/75 H 140/76 Pulse Oximetry 98 92 97 Oxygen Delivery Nasal Cannula Oxygen Flow Rate 2 05/21/23 21:12 05/21/23 20:00 05/21/23 23:27 Temperature 97.7 F 97.4 F L Pulse Rate 86 87 Respiratory Rate 16 16 Blood Pressure 140/76 128/70 Pulse Oximetry 97 94 90 Oxygen Delivery Nasal Cannula Oxygen Flow Rate 2 05/21/23 22:50 05/22/23 03:39 05/22/23 07:45 Temperature 97.6 F 96.0 F L Pulse Rate 84 94 Respiratory Rate 18 18 18 Blood Pressure 133/67 141/77 H Pulse Oximetry 91 94 Oxygen Delivery CPAP Oxygen Flow Rate 05/22/23 09:07 Temperature Pulse R
[2023-05-22 11:18] LABS: Glucose Point of Care 184 mg/dl (65-105)
[2023-05-22] MEDS: RIZATRIPTAN BENZOATE 10 MG TABLET PO (11:25)
[2023-05-22 15:24] LABS: Alanine Aminotransferase 646 U/L (6-50); Albumin Level 4.1 g/dL (3.5-5.1); Alkaline Phosphatase 146 U/L (38-126); Aspartate Amino Transferase 387 U/L (17-59); Bilirubin Direct 0.1 mg/dL (0-0.3); Bilirubin,Total 2.3 mg/dL (0.2-1.3)
[2023-05-22 16:34] LABS: Glucose Point of Care 121 mg/dl (65-105)
[2023-05-22] MEDS: IBUPROFEN 600 MG TABLET PO (18:49)
--- NOTE | 2023-05-22 20:00 | PC.NURSE ---
Addendum entered by Haily Merchant RN 05/22/23 20:17: In previous note, but still now WNL, was intended to read but still NOT WNL. After notifying physician, provider restarted antibiotics and ordered ibuprofen to help reduce fever. Informed night RN of changes in status. Original Note: Pt is A&O4 male who has participated and contributed in plan of care. Pt antibiotics were discontinued. Pt has had a headache today that turned into a migraine. Pt had elevated labs so provider ordered a second set of labs to be drawn in the afternoon to see if numbers would come back down. Pt labs did come back down, but still now WNL. Pt has developed a fever, and provider was notified. Pt restarted antibiotics and added ibuprofen to help reduce fever. Pt has been monitored and treated for all changes in status.
[2023-05-22] MEDS: NORTRIPTYLINE HCL 25 MG CAPSULE PO (20:18)
[2023-05-22] MEDS: FAMOTIDINE 20 MG TABLET PO (20:18)
--- NOTE | 2023-05-22 20:33 | ECG_ITS ---
Measurements Intervals Sharon Rate: 108 P: 23 IL: 174 QRS: -35 QRSD: 172 T: 93 QT: 392 QTc: 527 Interpretive Statements SINUS TACHYCARDIA MARKED LEFT AXIS DEVIATION [QRS AXIS < -30] LEFT BUNDLE BRANCH BLOCK [120+ ms QRS DURATION, 80+ ms Q/S IN V1/V2, 85+ ms R IN I/aVL/V5/V6] ABNORMAL ECG COMPARED TO ECG 05/21/2023 02:18:44 SINUS TACHYCARDIA NOW PRESENT LEFT-AXIS DEVIATION NOW PRESENT LEFT BUNDLE-BRANCH BLOCK NOW PRESENT Electronically Signed On 05-23-2023 9:23:12 CDT by Emeka Barbosa M.D.
[2023-05-22] MEDS: LACTATED RINGERS 1,000 ML 999 ML IV CONT (20:49)
[2023-05-22 20:55] LABS: Hematocrit 39.7 % (42.0-52.0); Hemoglobin 12.7 g/dL (14.0-18.0); Mean Corpuscular Hemoglobin 28.8 pg (26-34); Mean Platelet Volume 10.2 fl (7.4-10.4); Platelet Count Result 184 k/mm3 (150-375); Red Blood Count 4.41 M/mm3 (4.6-6.20); Red Cell Distribution Width 13.6 % (11.5-14.5); White Blood Count 16.1 K/mm3 (4.5-10.0)
[2023-05-22 21:05] LABS: Glucose Point of Care 150 mg/dl (65-105)
[2023-05-22 21:06] LABS: Alanine Aminotransferase 530 U/L (6-50); Albumin Level 3.8 g/dL (3.5-5.1); Alkaline Phosphatase 152 U/L (38-126); Anion Gap 12 mmol/L (8-16); Aspartate Amino Transferase 250 U/L (17-59); Bilirubin,Total 1.8 mg/dL (0.2-1.3); Blood Urea Nitrogen 31 mg/dL (9-20); Calcium 8.1 mg/dL (8.4-10.2); Carbon Dioxide 22 mmol/L (22-30); Chloride 103 mmol/L (98-107); Estimated CRCL calculation 50 ml/min; Estimated Glomerular Filt Rate 50; Glucose 136 mg/dL (65-110); Lactic Acid Reflex 1.1 mmol/L (0.7-2.0); Potassium 3.7 mmol/L (3.4-5.0); Sodium 137 mmol/L (137-145)
[2023-05-22] MEDS: FUROSEMIDE INJ 40 MG/4 ML VIAL 20 MG IV PUSH (23:15)
[2023-05-23] VITALS (7 sets, daily range): BP systolic 122; BP diastolic 66; PULSE 86–101; RESP 20; TEMP 36.5; O2SAT 91–96
[2023-05-23] MEDS: IBUPROFEN 600 MG TABLET PO ×2 (01:27→09:08)
[2023-05-23] MEDS: PIPERACILLN/TAZ 3.375GM/NS50ML 3.375 GM/50 ML BAG IVPB (05:40)
[2023-05-23 06:32] LABS: Hematocrit 37.8 % (42.0-52.0); Hemoglobin 12.3 g/dL (14.0-18.0); Mean Corpuscular HGB Conc 32.5 g/dl (32-36); Mean Corpuscular Hemoglobin 28.9 pg (26-34); Mean Corpuscular Volume 88.9 fl (80-100); Mean Platelet Volume 10.5 fl (7.4-10.4); Platelet Count Result 176 k/mm3 (150-375); Red Blood Count 4.25 M/mm3 (4.6-6.20); Red Cell Distribution Width 13.8 % (11.5-14.5); White Blood Count 13.8 K/mm3 (4.5-10.0)
[2023-05-23 06:52] LABS: Alanine Aminotransferase 468 U/L (6-50); Albumin Level 3.8 g/dL (3.5-5.1); Alkaline Phosphatase 153 U/L (38-126); Aspartate Amino Transferase 155 U/L (17-59); Bilirubin,Total 1.5 mg/dL (0.2-1.3)
[2023-05-23 08:27] LABS: Glucose Point of Care 104 mg/dl (65-105)
[2023-05-23] MEDS: EMPAGLIFLOZIN 25 MG TABLET BY MOUTH (09:00)
[2023-05-23] MEDS: METOPROLOL SUCCINATE EXT REL 50 MG TABCR PO (09:00)
[2023-05-23] MEDS: ROSUVASTATIN 10 MG TABLET 40 MG PO (09:00)
[2023-05-23] MEDS: VITAMIN B COMPLEX CAPSULE 1 CAP PO (09:01)
--- NOTE | 2023-05-23 09:41 | PM.PNGS ---
Progress Note: A&P Assessment and Plan (1) Acute cholecystitis: Code(s): K81.0 - Acute cholecystitis Status: Acute Assessment and Plan: Liver enzymes improved. Surgically stable. Okay to discharge when hospitalist feels it is safe from the infection standpoint. Blood cultures obtained last night but are pending. (2) Hyperbilirubinemia: Code(s): E80.6 - Other disorders of bilirubin metabolism Status: Acute (3) Hypertension: Code(s): I10 - Essential (primary) hypertension Status: Acute (4) Diabetes: Code(s): E11.9 - Type 2 diabetes mellitus without complications Status: Acute Subjective Subjective Date/Time Seen: 05/23/23 09:41 Interval history: Patient had a fever last night. Feeling better this morning. Pain controlled. Tolerating low-fat diet. Exam GI: Inspection: non-distended and incision (Intact with glue) GI Palp: Yes Soft to palpation and Yes Tenderness to palpation present (GI) (Incisional) Objective Data Vital Signs Vital Signs: Vital Signs - 24 hr 05/22/23 14:01 05/22/23 16:00 05/22/23 20:00 Temperature 36.9 C Pulse Rate 109 H Respiratory Rate 20 Blood Pressure 148/73 H Pulse Oximetry 94 90 90 Oxygen Delivery Room Air Nasal Cannula Oxygen Flow Rate 3 Fraction of Inspired Oxygen 21 05/22/23 21:55 05/22/23 22:00 05/23/23 01:33 Temperature 37.6 C H Pulse Rate 99 118 H 101 H Respiratory Rate 21 H 20 20 Blood Pressure 118/60 Pulse Oximetry 91 90 93 Oxygen Delivery CPAP CPAP Oxygen Flow Rate Fraction of Inspired Oxygen 05/23/23 05:57 05/23/23 04:00 05/23/23 05:58 Temperature 36.5 C Pulse Rate 86 Respiratory Rate 20 Blood Pressure 122/66 Pulse Oximetry 95 92 92 Oxygen Delivery Nasal Cannula Nasal Cannula Oxygen Flow Rate 2 1 Fraction of Inspired Oxygen 05/23/23 08:21 05/23/23 09:00 05/23/23 08:00 Temperature Pulse Rate 98 Respiratory Rate Blood Pressure Pulse Oximetry 91 96 Oxygen Delivery Room Air Nasal Cannula Oxygen Flow Rate 1 Fraction of Inspired Oxygen 21 Intake/Output Intake/Output: Intake & Output 05/20/23 05/21/23 05/22/23 05/23/23 23:59 23:59 23:59 23:59 Intake Total 2100 1350 920 Output Total 800 Balance 1300 1350 920 Meds/Results Medications: Active Medications Generic Name Dose Route Start Last Admin Trade Name Kwameq PRN Reason Stop Dose Admin Acetaminophen 650 mg 05/21/23 05:45 05/22/23 10:26 Acetaminophen 325 Mg Tablet PO 650 mg Q4H PRN Administration Mild Pain (1-3) or Fever Hydrocodone Bitart/Acetaminophen 1 tab 05/21/23 19:23 05/22/23 20:17 Hydrocodone/Acetaminophen (*Crx) 5-325 Mg Tablet PO 1 tab Q4H PRN Administration Pain Rated 4-6 Hydrocodone Bitart/Acetaminophen 1 tab 05/21/23 19:23 Hydrocodone/Acetaminophen (*Crx) 10-325 Mg Tablet PO Q6H PRN Pain Rated 7-10 Dextrose 12.5 gm 05/21/23 21:13 Dextrose 50% 25 Gm/50 Ml Syringe IV PUSH PRN PRN Hypoglycemia Protocol Empagliflozin 25 mg 05/22/23 09:00 05/23/23 09:00 Empagliflozin 25 Mg Tablet BY MOUTH 25 mg DAILY NICK Administration Famotidine 20 mg 05/21/23 21:15 05/22/23 20:18 Famotidine 20 Mg Tablet PO 20 mg QHS NICK Administration Glucagon 1 mg 05/21/23 21:13 Glucagon For Inj 1 Mg Vial IM PRN PRN Hypoglycemia Protocol Glucose 15 gm 05/21/23 21:13 Glucose Oral Gel 15 Gm Of Glucse In 37.5 Gm Tube PO PRN PRN Hypoglycemia Protocol Hydromorphone HCl 0.5 mg 05/21/23 19:23 Hydromorphone Hcl Inj (*Crx) 1 Mg/Ml Syr IV PUSH Q2H PRN Pain Rated 4-6 Hydromorphone HCl 1 mg 05/21/23 19:23 Hydromorphone Hcl Inj (*Crx) 1 Mg/Ml Syr IV PUSH Q2H PRN Pain Rated 7-10 Dextrose 1,000 mls @ 100 mls/hr 05/21/23 21:13 Dextrose 5% 1,000 Ml IVPB PRN PRN Hypoglycemia Protocol Piperacillin/Tazobactam/De
[2023-05-23 09:46] LABS: Anion Gap 9 mmol/L (8-16); Blood Urea Nitrogen 34 mg/dL (9-20); Calcium 8.1 mg/dL (8.4-10.2); Carbon Dioxide 24 mmol/L (22-30); Chloride 103 mmol/L (98-107); Estimated CRCL calculation 50 ml/min; Estimated Glomerular Filt Rate 50; Glucose 142 mg/dL (65-110); Potassium 3.7 mmol/L (3.4-5.0); Sodium 136 mmol/L (137-145)
--- NOTE | 2023-05-23 10:36 | PM.DS ---
DS: Admitting Diagnosis Discharge Date 05/23/2023 Admitting Diagnosis Right upper quadrant abdominal pain Hypertension Diabetes DS: Discharge Diagnosis Discharge Diagnosis (1) Hyperbilirubinemia: Code(s): E80.6 - Other disorders of bilirubin metabolism Status: Acute (2) Hyperlipidemia: Code(s): E78.5 - Hyperlipidemia, unspecified Status: Acute (3) Hypertension: Code(s): I10 - Essential (primary) hypertension Status: Acute (4) Diabetes: Code(s): E11.9 - Type 2 diabetes mellitus without complications Status: Acute (5) Acute cholecystitis: Code(s): K81.0 - Acute cholecystitis Status: Acute DS: Summary Hospital Course Hospital Course: Patient was admitted with right upper quadrant abdominal pain. CT scan showed acute cholecystitis. No surgery was consulted. Patient underwent laparoscopic cholecystectomy. Postoperatively he spiked deliberate fever and elevated white cell count and elevated liver enzymes so he was moderate overnight. There was a concern for up biliary stones but his liver enzymes are trending down. His bilirubin is completely normal now and patient is afebrile and asymptomatic and is eating and drinking well. As per general surgery is okay to be discharged home. Time Spent with Patient Time attestation: Total time spent providing and/or coordinating discharge services: DS: Data Data Completed and Pending Pending studies at discharge: Pending at discharge 05/21/23 16:11 Surgical [PTH] Routine 05/21/23 17:22 Surgical [PTH] Routine Labs on day of discharge: Labs from last 24 hours 05/23/23 05/23/23 05/23/23 08:12 05:43 05:41 WBC 13.8 H RBC 4.25 L Hgb 12.3 L Hct 37.8 L MCV 88.9 MCH 28.9 MCHC 32.5 RDW 13.8 Plt Count 176 MPV 10.5 H Sodium 136 L Potassium 3.7 Chloride 103 Carbon Dioxide 24 Anion Gap 9 BUN 34 H Creatinine 1.40 H Estim Creat Clear Calc 50 Estimated GFR 50 L Glucose 142 H POC Capillary Glucose 104 Lactic Acid Calcium 8.1 L Total Bilirubin 1.5 H Direct Bilirubin 0.0 AST 155 H ALT 468 H Alkaline Phosphatase 153 H Total Protein 7.0 Albumin 3.8 05/22/23 05/22/23 05/22/23 20:44 20:12 16:30 WBC 16.1 H RBC 4.41 L Hgb 12.7 L Hct 39.7 L MCV 90.0 MCH 28.8 MCHC 32.0 RDW 13.6 Plt Count 184 MPV 10.2 Sodium 137 Potassium 3.7 Chloride 103 Carbon Dioxide 22 Anion Gap 12 BUN 31 H Creatinine 1.40 H Estim Creat Clear Calc 50 Estimated GFR 50 L Glucose 136 H POC Capillary Glucose 150 H 121 H Lactic Acid 1.1 Calcium 8.1 L Total Bilirubin 1.8 H Direct Bilirubin AST 250 H ALT 530 H Alkaline Phosphatase 152 H Total Protein 7.0 Albumin 3.8 05/22/23 05/22/23 15:06 11:16 WBC RBC Hgb Hct MCV MCH MCHC RDW Plt Count MPV Sodium Potassium Chloride Carbon Dioxide Anion Gap BUN Creatinine Estim Creat Clear Calc Estimated GFR Glucose POC Capillary Glucose 184 H Lactic Acid Calcium Total Bilirubin 2.3 H Direct Bilirubin 0.1 AST 387 H ALT 646 H Alkaline Phosphatase 146 H Total Protein 7.0 Albumin 4.1 Discharge Plan Discharge Consulting providers: Dudley Betancourt; Gracy Cole Discharging Clinician: Kenyon Zamarripa Anticipated Discharge Date/Time: 05/23/23 10:35 Patient Disposition: Home, Self-Care Activity: no preference Diet: heart healthy and low fat Patient Instructions: Antibiotic Form, Cholecystitis (GEN) Stand Alone Forms: General Discharge Information Follow-up/Referrals: Aureliano,Jani Hunter PA-C [Primary Care Provider] - Discharge Medications: Continued aspirin [Adult Aspirin Regimen] 81 mg tablet,delayed release (DR/EC) 81 mg PO DAILY nortriptyline 25 mg capsule 35 mg PO QHS
--- NOTE | 2023-05-23 15:29 | PC.NURSE ---
Pt was discharged home with . Pt denies pain. Pt reports feeling much better than last night. Pt was educated on discharge instructions. IV was removed and pt tolerated well. Pt expresses no needs at this time. Pt was monitored for any changes in status.
== END 2023-05-23 11:30 | disposition home or self-care (01) ==
LOC: ANHED 04:35 → ANH3MEDSUR 05:53
PROVIDERS: General Practice; Internal Medicine; Nurse Practitioner; Physician Assistant; Surgery; Admitting Provider Hospitalist; Emergency Provider Physician Assistant; PCP Physician Assistant; Visit Provider Hospitalist
PROC: 0FT44ZZ Resection of Gallbladder, Percutaneous Endoscopic Approach (ICD-10-PCS; CPT 47562; principal; 2023-05-21 17:00)
DX: K80.00 Calculus of gallbladder with acute cholecystitis without obstruction (principal); E80.6 Other disorders of bilirubin metabolism; K21.9 Gastro-esophageal reflux disease without esophagitis; I10 Essential (primary) hypertension; E11.65 Type 2 diabetes mellitus with hyperglycemia; E78.5 Hyperlipidemia, unspecified; R00.1 Bradycardia, unspecified; I44.7 Left bundle-branch block, unspecified; J84.9 Interstitial pulmonary disease, unspecified; J98.11 Atelectasis; R74.01 Elevation of levels of liver transaminase levels; E66.9 Obesity, unspecified; Z68.32 Body mass index [BMI] 32.0-32.9, adult; R94.31 Abnormal electrocardiogram [ECG] [EKG]; R79.89 Other specified abnormal findings of blood chemistry; Z79.82 Long term (current) use of aspirin; Z79.84 Long term (current) use of oral hypoglycemic drugs; Z79.899 Other long term (current) drug therapy; Z82.49 Family history of ischemic heart disease and other diseases of the circulatory system; Z83.3 Family history of diabetes mellitus
CPT/HCPCS: 47562; 36415; 71045; 74177; 80048; 80053; 80076; 81003; 82948; 83036; 83605; 83690; 84484; 85025; 85027; 87040; 88304; 93005; 94660; 96361; 96365; 96375; 96376; 99285; A9270; G0378; J1100; J1170; J1940; J2270; J2371; J2405; J2543; J2704; J3010; J7030; J7120; Q9967

== ENCOUNTER 2025-10-12 19:30 | Emergency (ER) | payer MEDICARE, SELFPAY ==
--- OUTSIDE RECORDS SUMMARY | 2025-10-12 19:32 | XMS_ITS | Clinical Summary ---
Author Organization [facility] Address [address] [facility] [place] [address] Care Team Providers Care Trial Examiner Name Role Phone Jani Bedoya PA-C Primary Care Provider [phone] Source Comments [facility],non-owned Affiliates and Associated Physician Practices is amultiple site organization consisting of ambulatory clinics and hospital sitesin [place], [place], [place] and [place]. This disclosure is being madepursuant to the Care Everywhere program and may not contain all information available regarding this patient. Last updated 18.[facility] Allergies No known active allergies Medications * Be aware that medications may not be up to date on this document. Alwaysverify current medications with the patient. aspirin (ASPIRIN) 81 MG tablet Take 1 (one) tablet by mouth once daily Active famotidine (PEPCID) 20 MG tablet Take 1 (one) tablet by mouth at bedtime Active pantoprazole EC (PROTONIX) 40 MG tablet Take 1 (one) tablet by mouth once daily 1 8 Active Cyanocobalamin (B-12) 500 MCG Take 4 (four) tablets by mouth once daily Active ciclopirox (LOPROX) 0.77 % cream Apply 1 applicator to affected area every morning 1 Active Farxiga 10 MG tablet Take 1 (one) tablet by mouth once daily 4 Active clobetasol (Temovate) 0.05 % ointment Apply to affected area 2 times daily 60 g 4 4 Active nortriptyline (Pamelor) 10 MG capsule Take 1 (one) capsule by mouth 2 times daily 180 capsule 3 5 Active nortriptyline (Pamelor) 25 MG capsule Take 1 (one) capsule by mouth at bedtime 90 capsule 3 5 Active rizatriptan (Maxalt) 10 MG tablet TAKE 1 TABLET AT ONSET OF MIGRAINE,MAY REPEAT 1 DOSE AFTER 2 HOURS IF NEEDED (MAX 2TABS/24HRS) 8 tablet 3 5 Active Ozempic, 0.25 or 0.5 MG/DOSE, 2 MG/3ML SOPN Inject 0.5 mg subcutaneously as directed 5 Active lisinopril (Prinivil; Zestril) 40 MG tablet Take 1 (one) tablet by mouth at bedtime 5 Active metoprolol succinate XL 24hr (Toprol XL) 50 MG tablet Take 1 (one) tablet by mouth once daily 5 Active rosuvastatin (Crestor) 40 MG tablet Take 1 (one) tablet by mouth at bedtime 5 Active fluticasone propionate (Flonase) 50 MCG/ACT nasal sprayIndicatio ns:LESLEY (obstructive sleep apnea),Chronic rhinitis [place] 2 (two) sprays into each nostril 2 times daily 16 g 3 5 Active azelastine (Astelin) 0.1 % nasal sprayIndicatio ns:LESLEY (obstructive sleep apnea),Chronic rhinitis [place] 1 (one) spray to 2 (two) sprays into each nostril 2 times daily Aim tip of spray bottle towards the SAME EYE as the nostril you are spraying in (e.g. when spraying into the left nostril, aim it towards the left eye) 30 mL 3 5 Active Active Problems Problem Noted Date Diagnosed Date Arthritis of left acromioclavicular joint 2024 Hemoglobin A1c less than 7.0% 08/26/2025 Hyperbilirubinemia 08/26/2025 Actinic keratosis 08/26/2025 Family history of colonic polyps 07/05/2021 Overview (12/14/2021): Added automatically from request for surgery [id number] Added automatically from request for surgery [id number] Routine general medical exam ination at a health care facility 06/27/2021 Overview (12/14/2021): Last Assessment & Plan: Healthcare maintenance updated, P 13 and flu shot were given today. Colonoscopy was ordered and screening labs were ordered Last Assessment & Plan: Healthcare maintenance updated, P 13 and flu shot were given today. Colonoscopy was ordered and screening labs were ordered Obesity with body mass index 30 or greater 04/20 Decreased testosterone level 06/04/2019 Ecchymosis 06/04/2019 Gastroesophageal reflux disease 06/04/2019 Overview (08/26/2025): >>OVERVIEW FOR GASTROESOPHAGEAL REFLUX DISEASE WRITTEN ON 12/14/2021 11:00 AM BY DAWN TIRADO Last Assessment & Plan: Images from the original note were not included. Avoid spicy, fried, greasy foods Keep hydrated with clear liquids Elevate HOB 2- 3 inches Avoid or cut down on caffeines, chocolates, and ETOH No late meals, or heavy meals after 7 pm Reg daily exercise No tight fitting clothing Stop smoking - if smoker Watch for worsening symptoms - ie diarrhea, vomiting, nausea, blood per rectum, vomiting up blood ,fever, arthralgias, rash etc. RTC prn or if new symptoms arise Pt or parent verbalizes understanding Last Assessment & Plan: This is stable with meds and diet continue current meds if patient has breakthrough signs and symptoms we will get EGD Last Assessment & Plan: Images from the original note were not included. Avoid spicy, fried, greasy foods Keep hydrated with clear liquids Elevate HOB 2- 3 inches Avoid or cut down on caffeines, chocolates, and ETOH No late meals, or heavy meals after 7 pm Reg daily exercise No tight fitting clothing Stop smoking - if smoker Watch for worsening symptoms - ie diarrhea, vomiting, nausea, blood per rectum, vomiting up blood ,fever, arthralgias, rash etc. RTC prn or if new symptoms arise Pt or parent verbalizes understanding Headache 06/04/2019 Impotence 06/04/2019 Hypercholesterolemia 06/04/2019 Overview (12/14/2021): Last Assessment & Plan: Patient is to continue present medications, work on diet and exercise as discussed, we did discuss the medications and potential side effects and signs and symptoms that would warrant calling office. Follow up routine. Last Assessment & Plan: Patient is to continue present medications, work on diet and exercise as discussed, we did discuss the medications and potential side effects and signs and symptoms that would warrant calling office. Follow up routine. Erectile dysfunction due to diseases classified elsewhere 06/04/2019 Overview (12/14/2021): Last Assessment & Plan: This is uncontrolled patient has tried numerous medications she tried testosterone replacement he tried penile injections. We had a very long discussion about surgical options including an inflatable implant patient agrees with the plan will be sending him to Urology for evaluation and treatment. Last Assessment & Plan: This is uncontrolled patient has tried numerous medications she tried testosterone replacement he tried penile injections. We had a very long discussion about surgical options including an inflatable implant patient agrees with the plan will be sending him to Urology for evaluation and treatment. Atherosclerosis of [place] co ronary artery of [place] heart without angina pectoris 01/01/2019 Nonrheumatic aortic valve insufficiency 01/02/20 19 Non-rheumatic mitral regurgitation 01/01/2019 Nonischemic cardiomyopathy 01/01/2019 Hyperlipidemia 01/01/2019 SVT (supraventricular tachycardia) 01/01/2019 Overview (12/14/2021): Last Assessment & Plan: This is currently stable with current medications. Continue current meds follow- up with Cardiology Last Assessment & Plan: This is currently stable with current medications. Continue current meds follow- up with Cardiology Type 2 diabetes mellitus 09/24/2018 Overview (12/14/2021): Last Assessment & Plan: This is well controlled night exam is up-to-date were going to continue current medications labs as ordered follow-up in 6 Last Assessment & Plan: This is well controlled night exam is up-to-date were going to continue current medications labs as ordered follow-up in 6 Hypertensive disorder 10/21/2017 Essential hypertension 10/21/2017 Overview (08/26/2025): >>OVERVIEW FOR ESSENTIAL HYPERTENSION WRITTEN ON 12/14/2021 11:00 AM BY DAWN TIRADO Last Assessment & Plan: This is a stable chronic condition. Monitor blood pressure, call if out of parameters as we discussed. Low sodium and caffeine diet. baby asa as discussed if applicable. Diet, exercise and weight reduction. Labs as ordered. F/U routine Last Assessment & Plan: This is a stable chronic condition. Monitor blood pressure, call if out of parameters as we discussed. Low sodium and caffeine diet. baby asa as discussed if applicable. Diet, exercise and weight reduction. Labs as ordered. F/U routine Cardiomyopathy 05/04/2017 Overview (12/14/2021): Last Assessment & Plan: This is currently stable and patient is followed by cardiology. We will continue to follow Last Assessment & Plan: This is currently stable and patient is followed by cardiology. We will continue to follow Obstructive sleep apnea syndrome 05/04/2017 Overview (12/14/2021): Last Assessment & Plan: This is well controlled will continue to follow Last Assessment & Plan: This is well controlled will continue to follow Bronchitis 2017 SNHL (sensory-neural hearing loss), unilateral 0 01/22/2015 Migraine 06/28/2012 Overview (08/28/2025): >>OVERVIEW FOR MIGRAINE WRITTEN ON 12/14/2021 11:00 AM BY DAWN TIRADO Last Assessment & Plan: This is well controlled with nortriptyline will continue current meds and follow up routine Last Assessment & Plan: This is well controlled with nortriptyline will continue current meds and follow up routine BPPV (benign paroxysmal positional vertigo) 06/15 Encounters Date Type Department Care Team Description 09/24/2025 Orders Only [facility] - Sleep Services [address] [phone] Angela Camilo APNP-STATION MASTER Excessive daytime sleepiness ; Chronic fatigue; Obstructive sleep apnea syndrome; Essential hypertension; Obesity with body mass index 30 or greater; Type 2 diabetes mellitus with hyperglycemia, without long-term current use of insulin (HCC); Intolerance of continuous positive airway pressure (CPAP) ventilation 09/15/2025 9:45 AM DIGITAL MARKETING CONSULTANT Office Visit [facility] - ENT [address] [place] [address] Dayne Quach MD LESLEY (obstructive sleep apnea) (Primary Dx); Loud snoring; Chronic rhinitis; Deviated nasal septum; Elongated uvula, acquired; Bilateral impacted cerumen; Dizziness; Atypical migraine; Ear lesion; Squamous cell carcinoma of left ear 09/15/2025 Travel 09/07/2025 10:05 AM DIGITAL MARKETING CONSULTANT - 09/07/2025 11:25 AM DIGITAL MARKETING CONSULTANT Surgery [facility] [address] [place] [phone] Dayne Quach MD DRUG INDUCED SLEEP ENDOSCOPY 09/07/2025 8:43 AM DIGITAL MARKETING CONSULTANT Anesthesia Event [facility] [address] [place] [phone] Jason Lo MD Rinderer, Mallory, APRN-SHOLA 09/07/2025 6:39 AM DIGITAL MARKETING CONSULTANT - 09/07/2025 9:55 AM DIGITAL MARKETING CONSULTANT Hospital Encounter [facility] [address] [place] [address] Dayne Quach MD Surgery General Discharge Disposition: Home or Self Care 09/07/2025 Travel 08/26/2025 2:20 PM DIGITAL MARKETING CONSULTANT Office Visit [facility] - Sleep Services [address] [phone] Anglea Camilo APNP-STATION MASTER Obstructive sleep apnea syndrome (Primary Dx); Essential hypertension; Obesity with body mass index 30 or greater; Type 2 diabetes mellitus with hyperglycemia, without long-term current use of insulin (HCC); Excessive daytime sleepiness; Chronic fatigue; Nocturia; Inadequate sleep hygiene; Sleep drunkenness; Nocturnal leg cramps; Erectile dysfunction due to diseases classified elsewhere; Vestibular migraine; Hypertriglyceridemi a 08/26/2025 Orders Only [facility] - [facility] Services [address] [phone] Angela Camilo APNP-STATION MASTER Excessive daytime sleepiness; Chronic fatigue 08/26/2025 Travel 08/12/2025 Telephone [facility] [phone] Angela Camilo APNP-STATION MASTER Appointment 08/10/2025 Telephone [facility] - ENT [address] [place] [phone] Dayne Quach MD Question (Sleep study) 07/27/2025 Travel 07/21/2025 9:45 AM CDT Office Visit [facility] - ENT [address] [place] [phone] Dayne Quach MD LESLEY (obstructive sleep apnea) (Primary Dx) 07/21/2025 Travel 07/17/2025 Telephone [facility] - [facility] [address] [place] [address] Dayne Quach MD Appointment (Rescheduling) from Last 3 Months Immunizations Immunization Administration Dates Next Due INFLUENZA VACCINE, TRIV. (AF LURIA, FLUZONE TRIVALENT; 6MO+) (IIV3) 07/22/2015 COVID - 19, HISTORIC VACCINE 09/23/2023 COVID PFIZER BIVALENT 12Y+ 30mcg/0.3ML 09/23/2023,08/28/2022 Covid Pfizer primary monoval ent 12+ yr 0.3mL Purple cap 09/28/2021,09/14/2021,10/21/2020,2019 FLU VACCINE QUAD IIV4 SPLIT 0.25 ML IM 08/15/2017 INFLUENZA VACCINE 08/30/2023,07/27/2022,06/28/20 INFLUENZA VACCINE, CELL CULT URE, QUADR. (FLUCELVAX QUADRIVALENT; 6MO+), 0.5 ML (CCIIV4) 07/31/2019 INFLUENZA VACCINE, HIGH-DOSE , QUADR. (FLUZONE HIGH-DOSE QUADRIVALENT; 65Y+), 0.7 ML (HD-IIV4) 08/30/2023,07/27/2022,06/28/2021 INFLUENZA VACCINE, HIGH-DOSE , TRIV. (FLUZONE HIGH-DOSE TRIVALENT; 65Y+) (HD-IIV3) 08/24/2025,08/28/2024 INFLUENZA VACCINE, QUADR. (A FLURIA, FLUZONE QUADRIVALENT; 6MO+) (IIV4) 06/15/2020 INFLUENZA VACCINE, QUADR. (F LUZONE; FLULAVAL; FLUARIX; AFLURIA QUADRIVALENT; 6MO+), 0.5 ML (IIV4) 07/29/2020,07/25/2018 PNEUMOCOCCAL PPSV23 08/14/2022 Pneumococcal Pcv13 Conj 06/28/2021 Family History Medical History Relation Name Comments Sleep Disorder - Sleep apnea Brother 1 inspire Depression Brother 2 CAD (Coronary Artery Disease) Father 98 Glaucoma Father 98 Hypertension Father 98 Thyroid Disease Father 98 CAD (Coronary Artery Disease) Mother 95 Dementia Mother 95 Hypertension Mother 95 Allergic Rhinitis Sister 1 Diabetes - Type 2 Sister 1 Hypertension Sister 1 None Known Sister 3 Relation Name Status Comments Brother 1 Alive Brother 2 Alive Father 98 Mother 95 Sister 1 Alive Sister 2 Alive Sister 3 Alive Social History Tobacco Use Types Packs/Day Years Used Date Smoking Tobacco: Never Smokeless Tobacco: Never Tobacco Cessation:Counseling Given: Not Answered Alcohol Use Standard Drinks/Week Comments Never 0 (1 standard drink = 0.6 oz pur e alcohol) AUDIT-C Answer Date Recorded Frequency of Alcohol Consumption Not on file 09/15/2025 Q2: How many drinks containi ng alcohol do you have on a typical day when you are drinking? Patient does not drink Frequency of Binge Drinking Not on file 11/2024 Education Answer Date Recorded What is the highest level of school you have completed or the highest degree you have received? 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 Not on file Not on file Last Filed Vital Signs Vital Sign Reading Time Taken Comments Blood Pressure 150/81 09/15/2025 9:30 AM DIGITAL MARKETING CONSULTANT Pulse 76 09/15/2025 9:30 AM DIGITAL MARKETING CONSULTANT Temperature 36.3 C (97.4 F) 09/07/2025 9:08 AM DIGITAL MARKETING CONSULTANT Respiratory Rate 10 09/07/2025 9:28 AM DIGITAL MARKETING CONSULTANT Oxygen Saturation 100% 09/07/2025 9:28 AM DIGITAL MARKETING CONSULTANT Inhaled Oxygen Concentration - - Weight 92.9 kg (204 lb 12.8 oz) 09/15/2025 9:30 AM DIGITAL MARKETING CONSULTANT Height 167.6 cm (5' 6) 09/15/2025 9:30 AM DIGITAL MARKETING CONSULTANT Body Mass Index 33.06 09/15/2025 9:30 AM DIGITAL MARKETING CONSULTANT Plan of Treatment Upcoming Encounters Date Type Department Care Team (Late st Contact Info) Description 10/21/2025 11:00 AM DIGITAL MARKETING CONSULTANT Office Visit [facility] - ENT [address] [place] [phone] Tigist Pabon, BLOCK OUT MACHINE OPERATOR-STATION MASTER [address] [place] [phone] Health Maintenance Due Date Last Done Comments COLOGUARD (AGES 45-75) - COLON CA SCREENING 1955 CT COLONOGRAPHY - COLON CA SCREENING 1955 FIT - COLON CA SCREENING 1955 FLEX SIG - COLON CA SCREENING 1955 HEPATITIS C SCREENING 03/11/1973 DIABETES-SERUM CREATININE 1973 DTAP/TDAP/TD VACCINES (1 - Tdap) 1974 Respiratory Syncytial Virus (RSV) Vaccine Pt: or over 60 yrs (1 - Risk 50-74 years 1-dose series) 2005 ZOSTER VACCINE (1 of 2) 2005 DIABETES RETINOPATHY SCREENING 06/04/2019 DIABETES-FOOT EXAM WITH MONOFILAMENT 06/04/2019 DIABETES-HGB A1C 06/04/2019 DEPRESSION SCREENING 10/15/2024 DIABETES - URINE PROTEIN SCREENING 10/15/2024 MEDICARE AWV CALENDAR YEAR 2024 COVID-19 VACCINE (2024- season) 2025 09/23/2023, 08/28/2022, 09/28/2021, Additional history exists COLON MONITORING 07/18/2031 07/18/2021 COLONOSCOPY - COLON CA SCREENING 07/18/2031 07/18/2021 Colorectal Cancer Screening 07/18/2031 PNEUMOCOCCAL VACCINE 50+ Completed 08/14/2022, 06/15 INFLUENZA VACCINE Completed 08/24/2025, , 08/30/2023, Additional history exists HEPATITIS B VACCINE Aged Out No longe r eligible based on patient's age to complete this topic HIB VACCINE Aged Out No longer eligi ble based on patient's age to complete this topic HPV VACCINE Aged Out No longer eligi ble based on patient's age to complete this topic MENINGOCOCCAL (Group B) VACCINE SHARED DECISION-MAKING Aged Out No longer eligible based on patient's age to complete this topic MENINGOCOCCAL GROUPS A/C/Y/W VACCINE Aged Out No longer eligible based on patient's age to complete this topic Procedures Procedure Name Priority Date/Time Associated Diagnosis Comments ME DISE DYN EVAL SLEEP DISORDERED BREATHING FLX DX 09/07/2025 8:38 AM DIGITAL MARKETING CONSULTANT Severe obstructive sleep apnea Special Needs SUPINE, GENERAL, PINK AMBU OR DISE/CPAP AMBU TOWER GLUCOSE - POINT OF CARE Routine 09/07/2025 7:01 AM DIGITAL MARKETING CONSULTANT VITAMIN D 25-HYDROXY Routine 09/04/2025 1:05 PM DIGITAL MARKETING CONSULTANT Excessive daytime sleepiness Chronic fatigue IRON + TIBC + FERRITIN Routine 09/04/2025 1:05 PM DIGITAL MARKETING CONSULTANT Excessive daytime sleepiness Chronic fatigue from Last 3 Months Results * (ABNORMAL) GLUCOSE - POINT OF CARE (09/07/2025 7:01 AM DIGITAL MARKETING CONSULTANT) Pathologist [facility] Glucose WB/POC 134(H) 70 - 99 mg/dL 09/07/2025 7:02 AM DIGITAL MARKETING CONSULTANT [facility] Specimen Type Venous 09/07/2025 7:02 AM DIGITAL MARKETING CONSULTANT [facility] Blood BLOOD SPECIMEN / Unknown 09/07/2025 7:01 AM DIGITAL MARKETING CONSULTANT 09/07/2025 7:02 AM DIGITAL MARKETING CONSULTANT us Dayne Quach MD LAB - POINT OF CARE ORDER JOHNNA Final Result [facility] [address] [address], [facility] [phone] * (ABNORMAL) IRON + TIBC + FERRITIN (09/04/2025 1:05 PM DIGITAL MARKETING CONSULTANT) Pathologist [facility] Iron 46(L) 50 - 180 mcg/dL [facility] TIBC 399 250 - 425 mcg/dL (calc) [facility] % Saturation 12(L) 20 - 48 % (calc) [facility] Ferritin 9(L) 24 - 380 ng/mL [facility] Comment: Test Performed at: [employer] [email or web address] [id number] [place] [address] SOFIA AMEZCUA MD Blood BLOOD SPECIMEN / Unknown 09/04/2025 1:05 PM DIGITAL MARKETING CONSULTANT 09/04/2025 1:05 PM DIGITAL MARKETING CONSULTANT us Angela Camilo APNP-STATION MASTER LAB - CHEMISTRY ORDERABLES Final Result Performing Organization Address [facility] Co de Phone Number [facility] [address] [place] [address] * VITAMIN D 25-HYDROXY (09/04/2025 1:05 PM DIGITAL MARKETING CONSULTANT) Vitamin D, 25 Hydroxy 33 30 - 100 ng/mL [facility] Comment: Vitamin D Status 25-OH Vitamin D: Deficiency: <20 ng/mL Insufficiency: 20 - 29 ng/mL Optimal: > or = 30 ng/mL For 25-OH Vitamin D testing on patients on D2-supplementation and patients for whom quantitation of D2 and D3 fractions is required, the [facility]ure[facility](TM) 25-OH VIT D, (D2,D3), LC/MS/MS is recommended: order code 00725 (patients >2yrs). See Note 1 Note 1 For additional information, please refer to http://education.Modality/faq/IXZ333 (This link is being provided for informational/ educational purposes only.) Test Performed at: [facility] [id number] [place] [address] SOFIA AMEZCUA MD Blood BLOOD SPECIMEN / Unknown 09/04/2025 1:05 PM DIGITAL MARKETING CONSULTANT 09/04/2025 1:05 PM DIGITAL MARKETING CONSULTANT Angela Camilo AP-STATION MASTER LAB - CHEMISTRY ORDERABLES Final Result Performing Organization Address [facility] de Phone Number [facility] [address] [place] [address] from Last 3 Months Insurance [employer] MEDICARE ADV Care Teams Trial Examiner Relationship Specialty Start Date End Date Jani Bedoya PA-C [address] [place] [phone] PCP - General 11/15/21
--- OUTSIDE RECORDS SUMMARY | 2025-10-12 19:32 | XMS_ITS | Clinical Summary ---
Author Organization [facility] Address [address] [place] [id number] Care Team Providers Care Meter Maintenance Person Name Role Phone Jani Bedoya PA-C Primary Care Provider Social History Tobacco Use Types Packs/Day Years Used Date Smoking Tobacco: Never Assessed Sex and Gender Information Value Date Recorded Sex Assigned at Not on file Legal Sex Male 8:12 AM CDT Gender Identity Not on file Sexual Orientation Not on file Plan of Treatment Health Maintenance Due Date Last Done Comments Colorectal Cancer Screening Colonoscopy (10 Years) 1955 Hepatitis C 1973 DTaP, Tdap and Td Vaccines (1 - Tdap) 1974 Zoster Vaccines (1 of 2) 2005 Annual Medicare Wellness Visit 2020 COVID-19 Vaccine ( season) 2025 09/23/2023, 08/28/2022, 09/28/2021, Additional history exists Influenza Adult (#1) 2025 08/30/2023, 07/27/2022, 06/28/2021, Additional history exists RSV Immunization or 60+ Years (1 - 1-dose 75+ series) 2030 Pneumococcal Vaccine: 50+ Years Completed 08/14/2022, 06/28/2021 Hepatitis A Vaccines Aged Out No long er eligible based on patient's age to complete this topic Meningococcal B Vaccine Aged Out No l onger eligible based on patient's age to complete this topic Meningococcal Vaccine Aged Out No robina abram eligible based on patient's age to complete this topic RSV Immunizations Under 20 Months Aged Out No longer eligible based on patient's age to complete this topic Insurance AENA MEDICARE Care Teams Meter Maintenance Person Relationship Specialty Start Date End Date Jani Bedoya PA-C [address] [phone] PCP - General PHYSICIAN PATTERN GENERATOR OPERATOR 07/17/24
--- OUTSIDE RECORDS SUMMARY | 2025-10-12 19:32 | XMS_ITS | Clinical Summary ---
Author Organization [facility] Building Address [address] [place] [id number] Care Team Providers Care Cleaning Laborer Name Role Phone Jani Bedoya Primary Care Provider [phone] Allergies No known active allergies Medications aspirin 81 mg enteric coated tablet Take 1 tablet (81 mg total) by mouth daily 05/10/20 17 Active ciclopirox (LOPROX) 0.77 % cream ciclopirox 0.77 % topical cream APPLY TO THE AFFECTED AREA OF SKIN ON FEET TWICE DAILY Active cyanocobalamin (Vitamin B-12) 500 mcg tablet Take 0.5 tablets (250 mcg total) by mouth nightly Active chlorthalidone 25 mg tablet Take 1/2 tablet by mouth every other day. 08/08/20 22 Active nortriptyline (PAMELOR) 25 mg capsule Take 35 mg by mouth nightly 04/13/20 23 Active clotrimazole-betamethas one (LOTRISONE) cream Apply a small amount to the outer ear canals nightly. 07/23/20 23 Active dapagliflozin propanediol (Farxiga) 10 mg tabletIndications:Type 2 diabetes mellitus with hyperosmolarity without coma, without long-term current use of insulin (HCC) Take 1 tablet (10 mg total) by mouth daily 03/27/20 24 Active famotidine (PEPCID) 20 mg tablet Take 1 tablet (20 mg total) by mouth nightly 03/27/20 24 Active lisinopriL (PRINIVIL,ZESTRIL) 40 mg tabletIndications:Essen tial hypertension Take 1 tablet (40 mg total) by mouth nightly 03/27/20 Active metoprolol XL (TOPROL-XL) 50 mg extended release tabletIndications:Essen tial hypertension,SVT (supraventricular tachycardia) Take 1 tablet (50 mg total) by mouth daily 03/27/20 24 Active nortriptyline (PAMELOR) 10 mg capsule Take 1 capsule (10 mg total) by mouth nightly 90 capsule 3 03/27/[address] (PROTONIX) 40 mg EC tablet Take 1 tablet by mouth once daily 03/27/20 24 Active rizatriptan (MAXALT) 10 mg tablet Take 1 tablet (10 mg total) by mouth once as needed for migraine 03/27/20 Active rosuvastatin (CRESTOR) 40 mg tabletIndications:Pure hypercholesterolemia Take 1 tablet (40 mg total) by mouth daily 90 tablet 3 03/27/20 24 Active docusate sodium (COLACE) 100 mg capsuleIndications:cons tipation Take 1 capsule (100 mg total) by mouth 2 (two) times a day 180 capsule 3 03/27/20 24 Active Active Problems Problem Noted Date Diagnosed Date RUQ pain 12/27/2021 Assessment & Plan (12/27/2021 9:06 AM CDT): I reviewed the ultrasound and labs patient has already seen a surgeon am going to get a HIDA scan he is going to keep his appointment with the surgeon. I recommended a low-fat diet and for patient to return to the emergency room for recurrence of symptoms as discussed Liver lesion 12/27/2021 Assessment & Plan (03/26/2024 6:46 AM CDT): Normal on MRI Assessment & Plan (08/30/2023 9:49 AM PLASTER MACHINE TENDER): Normal on MRI Assessment & Plan (05/15/2023 3:20 PM CDT): Repeat MRI revealed no lesions Assessment & Plan (08/14/2022 11:40 AM CDT): Patient had a normal MRI of the liver Assessment & Plan (12/27/2021 9:05 AM CDT): This is doing noted on a scan in the emergency room I am going to get an MRI of the low Family history of colonic polyps 07/05/2021 Overview (07/05/2021): Added automatically from request for surgery [id number] Routine general medical exam ination at a health care facility 06/27/2021 Assessment & Plan (08/30/2023 9:50 AM PLASTER MACHINE TENDER): HEALTHCARE MAINTENANCE updated, flu shot given, discussed RSV Assessment & Plan (08/14/2022 11:40 AM CDT): Healthcare maintenance updated Assessment & Plan (06/28/2021 8:56 AM CDT): Healthcare maintenance updated, P 13 and flu shot were given today. Colonoscopy was ordered and screening labs were ordered Obesity with body mass index 30 or greater 04/20 Tendinitis of both rotator cuffs 07/21/2019 Decreased testosterone level 06/04/2019 Ecchymosis 06/04/2019 Gastroesophageal reflux disease 06/04/2019 Assessment & Plan (08/30/2023 9:49 AM PLASTER MACHINE TENDER): Images from the original note were not [...] symptoms arise Pt or parent verbalizes understanding Assessment & Plan (05/09/2022 11:30 AM CDT): Images from the original note were not [...] symptoms arise Pt or parent verbalizes understanding Assessment & Plan (12/27/2021 9:05 AM CDT): Images from the original note were not [...] symptoms arise Pt or parent verbalizes understanding Assessment & Plan (10/19/2021 1:53 PM PLASTER MACHINE TENDER): Images from the original note were not [...] symptoms arise Pt or parent verbalizes understanding Assessment & Plan (06/28/2021 8:55 AM CDT): This is stable with meds and diet continue current meds if patient has breakthrough signs and symptoms we will get EGD Bilateral headaches 06/04/2019 Hypercholesterolemia 06/04/2019 Assessment & Plan (08/30/2023 9:49 AM PLASTER MACHINE TENDER): Patient is to continue present medications, work on diet and exercise as discussed, we did discuss the medications and potential side effects and signs and symptoms that would warrant calling office. Follow up routine. Assessment & Plan (05/09/2022 11:31 AM CDT): Patient is to continue present medications, work on diet and exercise as discussed, we did discuss the medications and potential side effects and signs and symptoms that would warrant calling office. Follow up routine. Assessment & Plan (06/28/2021 8:55 AM CDT): Patient is to continue present medications, work on diet and exercise as discussed, we did discuss the medications and potential side effects and signs and symptoms that would warrant calling office. Follow up routine. Erectile dysfunction due to diseases classified elsewhere 06/04/2019 Assessment & Plan (03/26/2024 6:46 AM CDT): Option for urology consult, failed all meds Assessment & Plan (08/30/2023 9:49 AM PLASTER MACHINE TENDER): Option for urology consult, failed all meds Assessment & Plan (05/15/2023 3:19 PM CDT): This is controlled with p.r.n. medication Assessment & Plan (10/19/2021 1:54 PM PLASTER MACHINE TENDER): This is uncontrolled patient has tried numerous medications she tried testosterone replacement he tried penile injections. We had a very long discussion about surgical options including an inflatable implant patient agrees with the plan will be sending him to Urology for evaluation and treatment. 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 01/01/2019 Assessment & Plan (03/26/2024 6:46 AM CDT): This is very stable patient is followed by cardiology Assessment & Plan (05/15/2023 3:19 PM CDT): This is very stable patient is followed by cardiology Assessment & Plan (08/14/2022 11:39 AM CDT): This is stable and patient is followed by cardiology Assessment & Plan (05/09/2022 11:30 AM CDT): This is stable and patient is seen Cardiology Assessment & Plan (12/27/2021 9:05 AM CDT): Patient is stable and followed by Cardiology, continue current meds and follow up routine Assessment & Plan (10/19/2021 1:53 PM PLASTER MACHINE TENDER): Patient is stable continue current meds follow-up with Cardiology Hyperlipidemia 01/01/2019 Assessment & Plan (03/26/2024 6:46 AM CDT): Patient is to continue present medications, work on diet and exercise as discussed, we did discuss the medications and potential side effects and signs and symptoms that would warrant calling office. Follow up routine. Assessment & Plan (05/15/2023 3:20 PM CDT): Patient is to continue present medications, work on diet and exercise as discussed, we did discuss the medications and potential side effects and signs and symptoms that would warrant calling office. Follow up routine. Assessment & Plan (08/14/2022 11:40 AM CDT): Patient is to continue present medications, work on diet and exercise as discussed, we did discuss the medications and potential side effects and signs and symptoms that would warrant calling office. Follow up routine. Assessment & Plan (12/27/2021 9:05 AM CDT): Patient is to continue present medications, work on diet and exercise as discussed, we did discuss the medications and potential side effects and signs and symptoms that would warrant calling office. Follow up routine. Nonrheumatic aortic valve insufficiency 01/02/20 19 Non-rheumatic mitral regurgitation 01/01/2019 SVT (supraventricular tachycardia) 01/01/2019 Assessment & Plan (03/26/2024 6:46 AM CDT): Stable and seeing cardiology Assessment & Plan (08/30/2023 9:50 AM PLASTER MACHINE TENDER): Stable and seeing cardiology Assessment & Plan (05/15/2023 3:20 PM CDT): This is well controlled with no issues will continue to follow Assessment & Plan (08/14/2022 11:41 AM CDT): Controlled and followed by cardiology Assessment & Plan (06/28/2021 8:56 AM CDT): This is currently stable with current medications. Continue current meds follow- up with Cardiology Type 2 diabetes mellitus 09/24/2018 Assessment & Plan (03/26/2024 6:46 AM CDT): Patient is going to continue current medications, current labs were ordered, eye exam is up-to-date, foot care was discussed. Healthy diet and reference to [email or web address]. Exercise as discussed, follow-up as scheduled routine. We did discuss proper monitoring of blood sugars Assessment & Plan (08/30/2023 9:50 AM PLASTER MACHINE TENDER): Patient is going to continue current medications, current labs were ordered, eye exam is up-to-date, foot care was discussed. Healthy diet and reference to [email or web address]. Exercise as discussed, follow-up as scheduled routine. We did discuss proper monitoring of blood sugars Assessment & Plan (05/15/2023 3:20 PM CDT): We are looking for better improvement medications had order labs at next visit Assessment & Plan (08/14/2022 11:41 AM CDT): Patient is going to continue current medications, current labs were ordered, eye exam is up-to-date, foot care was discussed. Healthy diet and reference to [email or web address]. Exercise as discussed, follow-up as scheduled routine. We did discuss proper monitoring of blood sugars Assessment & Plan (05/09/2022 11:31 AM CDT): Patient is going to continue current medications, current labs were ordered, eye exam is up-to-date, foot care was discussed. Healthy diet and reference to [email or web address]. Exercise as discussed, follow-up as scheduled routine. We did discuss proper monitoring of blood sugars Assessment & Plan (12/27/2021 9:06 AM CDT): Patient is going to continue current medications, current labs were ordered, eye exam is up-to-date, foot care was discussed. Healthy diet and reference to [email or web address]. Exercise as discussed, follow-up as scheduled routine. We did discuss proper monitoring of blood sugars Assessment & Plan (06/28/2021 8:56 AM CDT): This is well controlled night exam is up-to-date were going to continue current medications labs as ordered follow-up in 6 Essential hypertension 10/21/2017 Assessment & Plan (03/26/2024 6:46 AM CDT): Images from the original note were not included. This is a stable chronic condition. Monitor blood pressure, call if out of parameters as we discussed. Low sodium and caffeine diet. baby asa as discussed if applicable. Diet, exercise and weight reduction. Labs as ordered. F/U routine Assessment & Plan (08/30/2023 9:49 AM PLASTER MACHINE TENDER): Images from the original note were not included. This is a stable chronic condition. Monitor blood pressure, call if out of parameters as we discussed. Low sodium and caffeine diet. baby asa as discussed if applicable. Diet, exercise and weight reduction. Labs as ordered. F/U routine Assessment & Plan (05/15/2023 3:20 PM CDT): This is a stable chronic condition. Monitor blood pressure, call if out of parameters as we discussed. Low sodium and caffeine diet. baby asa as discussed if applicable. Diet, exercise and weight reduction. Labs as ordered. F/U routine Assessment & Plan (08/14/2022 11:40 AM CDT): This is a stable chronic condition. Monitor blood pressure, call if out of parameters as we discussed. Low sodium and caffeine diet. baby asa as discussed if applicable. Diet, exercise and weight reduction. Labs as ordered. F/U routine Assessment & Plan (05/09/2022 11:30 AM CDT): This is a stable chronic condition. Monitor blood pressure, call if out of parameters as we discussed. Low sodium and caffeine diet. baby asa as discussed if applicable. Diet, exercise and weight reduction. Labs as ordered. F/U routine Assessment & Plan (12/27/2021 9:05 AM CDT): This is a stable chronic condition. Monitor blood pressure, call if out of parameters as we discussed. Low sodium and caffeine diet. baby asa as discussed if applicable. Diet, exercise and weight reduction. Labs as ordered. F/U routine Assessment & Plan (10/19/2021 1:53 PM PLASTER MACHINE TENDER): This is a stable chronic condition. Monitor blood pressure, call if out of parameters as we discussed. Low sodium and caffeine diet. baby asa as discussed if applicable. Diet, exercise and weight reduction. Labs as ordered. F/U routine Assessment & Plan (06/28/2021 8:55 AM CDT): This is a stable chronic condition. Monitor blood pressure, call if out of parameters as we discussed. Low sodium and caffeine diet. baby asa as discussed if applicable. Diet, exercise and weight reduction. Labs as ordered. F/U routine Cardiomyopathy 05/04/2017 Assessment & Plan (08/30/2023 9:48 AM PLASTER MACHINE TENDER): Stable and seeing cardiology Assessment & Plan (06/28/2021 8:55 AM CDT): This is currently stable and patient is followed by cardiology. We will continue to follow Ventricular tachycardia 05/04/2017 Obstructive sleep apnea syndrome 05/04/2017 Assessment & Plan (11/14/2024 10:08 AM PLASTER MACHINE TENDER): The patient continues to benefit from CPAP at 8 cm water pressure for ongoing symptoms of LES[place]. His DME supplier is [employer]. He will follow up here in 1 year. He did receive a new unit more than 1 year ago. Assessment & Plan (03/26/2024 6:46 AM CDT): Encourage c-pap Assessment & Plan (08/30/2023 9:50 AM PLASTER MACHINE TENDER): Encourage c-pap Assessment & Plan (05/15/2023 3:20 PM CDT): Encourage CPAP Assessment & Plan (04/05/2023 11:01 AM CDT): The patient continue to wear CPAP at 8 cm water pressure while sleeping. His DME is [employer]. Assessment & Plan (01/01/2023 1:18 PM CDT): The patient continues to benefit from CPAP at 8 cm water pressure. His DME supplier is [employer]. I will order a new CPAP unit for him with heated humidifier and he should follow-up with me in 3 months to see if his energy level improves. I will have him sign a release so we can get copies of his original sleep studies. Assessment & Plan (08/14/2022 11:40 AM CDT): Continue Assessment & Plan (06/28/2021 8:55 AM CDT): This is well controlled will continue to follow Bronchitis 2017 SNHL (sensory-neural hearing loss), unilateral 0 01/22/2015 BPPV (benign paroxysmal positional vertigo) 06/15 Migraine 06/28/2012 Assessment & Plan (06/28/2021 8:55 AM CDT): This is well controlled with nortriptyline will continue current meds and follow up routine Dizziness and giddiness 06/14/2012 Resolved Problems Problem Noted Date Diagnosed Date Resolved Date Hypertensive disorder 10/21/20172021 Immunizations Immunization Administration Dates Next Due Influenza, Quadrivalent, Isha l Culture-based MDCK, Antibiotic Free, Intramuscular 07/31/2019 Influenza, Quadrivalent, Hig h Dose, Preservative Free, Intrr 08/30/2023,07/27/2022,06/28/2021 Influenza, Quadrivalent, Spl it, Intramuscular 06/15/2020,08/15/2017 Influenza, Quadrivalent, Spl it, Preservative Free, Intramuscular 07/29/2020,07/25/2018 Influenza, Unspecified 08/30/2023,2021,06/28/2021,07/13,07/31/2018,07/22/2015 Pfizer SARS-CoV-2 Monovalent Vaccination (12+ Yrs) PURPLE 09/28/2021,09/14/2021 Pfizer Sars-Cov-2 Bivalent V accination (12+ YRS) 09/23/2023 Pneumococcal Conjugate PCV 13 06/28/2021 Pneumococcal Polysaccharide PPV23 08/14/2022 Sars-CoV-2, Unspecified 10/21/2020,10/04/2020 Sars-cov-2 Covid-19 Mrna, Bi valent, Original/omicron Ba.1 09/23/2023 Surgical History Surgery Date Site/Laterality Comments TONSILLECTOMY SHOULDER SURGERY 10/15/2019 - 10/14/2020 Left CHOLECYSTECTOMY Medical History Medical History Date Comments Acid reflux Headache Hypertension Ventricular tachycardia (HCC) Hyperlipidemia Type 2 diabetes mellitus Vestibular migraine 2013 Sleep apnea wears cpap Family History Medical History Relation Name Comments Hypertension Father Hypertension Mother Breast cancer Paternal Grandmother Relation Name Status Comments Father Alive Mother Paternal Grandmother Social History Tobacco Use Types Packs/Day Years Used Date Smoking Tobacco: Never Tobacco Cessation:Counseling Given: Not Answered AUDIT-C Answer Date Recorded Q1: How often do you have a drink containing alc ohol? Never 03/27/2024 Average Number of Drinks Not on file 024 Frequency of Binge Drinking Not on file 03/15 PHQ-2 Answer Date Recorded PHQ-2 Total Score (If total score is 3 or more points, staff should administer the PHQ-9) 0 08/30/2023 Sex and Gender Information Value Date Recorded Sex Assigned at Not on file Legal Sex Male 7:21 PM PLASTER MACHINE TENDER Gender Identity Male 06/27/2021 4:15 PM CDT Sexual Orientation Straight 12/25/2022 8: 06 AM CDT Last Filed Vital Signs Vital Sign Reading Time Taken Comments Blood Pressure 122/64 11/14/2024 9:52 AM PLASTER MACHINE TENDER Pulse 94 11/14/2024 9:52 AM PLASTER MACHINE TENDER Temperature 36.2 C (97.1 F) 11/14/2024 9:52 AM PLASTER MACHINE TENDER Respiratory Rate 18 11/14/2024 9:52 AM PLASTER MACHINE TENDER Oxygen Saturation 93% 11/14/2024 9:52 AM PLASTER MACHINE TENDER Inhaled Oxygen Concentration - - Weight 90.7 kg (200 lb) 11/14/2024 9:52 AM PLASTER MACHINE TENDER Height 170.2 cm (5' 7) 11/14/2024 9:52 AM PLASTER MACHINE TENDER Body Mass Index 31.32 11/14/2024 9:52 AM PLASTER MACHINE TENDER Plan of Treatment Health Maintenance Due Date Last Done Comments Foot Exam 1955 Hepatitis B Screening 1973 Hemoglobin A1C 01/04/2024 07/06/2023, 08/0 10/2022, 12/29/2021, Additional history exists Albumin Creatinine Ratio, Urine 07/06/2024 07/06/2023, 12/29/2021, 07/14/2021 Lipid Panel 07/06/2024 07/06/2023, 12/13, 07/14/2021 eGFR 07/06/2024 07/06/2023, 2 11/2021, 07/14/2021 Dilated Eye Exam 07/27/2024 07/27/2022, 06/30/2021 Depression Screening 08/30/2024 08/30/2023, 08/14/2022, 06/28/2021 Fall Risk Assessment 08/30/2024 08/30/2023, 08/14/2022, 07/18/2021, Additional history exists Well Visit 65+ 08/30/2024 08/30/2023, 07/17, 06/28/2021 Covid-19 Vaccine (2 6 season) 2025 09/23/2023, 09/23/2023, 08/28/2022, Additional history exists Influenza Vaccine (#1) 2025 , 08/30/2023, 07/27/2022, Additional history exists Colon Cancer Screening-Colonoscopy 07/18/2028 07/18/2021, 07/18/2021 Hepatitis C Screening Completed 12/29/2021 Pneumococcal vaccine 65+ Completed 08/14/2022, 06/15 Prostate Cancer Screening-PSA Discontinued 08/30/2023, 07/14/2021 DTaP/Tdap/Td Vaccine Discontinued Zoster Vaccine Discontinued Procedures Procedure Name Priority Date/Time Associated Diagnosis Comments PSA SCREEN Routine 08/30/2023 9:59 AM PLASTER MACHINE TENDER Screening PSA (prostate specific antigen) ALBUMIN CREATININE RATIO, URINE Routine 07/06/2023 2:51 PM CDT Type 2 diabetes mellitus with other specified complication, unspecified whether terminal superintendent insulin use (HCC) EGFR Routine 07/06/2023 2:38 PM CDT Type 2 diabetes mellitus with other specified complication, unspecified whether terminal superintendent insulin use (HCC) Essential hypertension Pure hypercholesterolemia HEMOGLOBIN A1C Routine 07/06/2023 2:38 PM CDT Type 2 diabetes mellitus with other specified complication, unspecified whether [facility] insulin use (HCC) LIPID PANEL Routine 07/06/2023 2:38 PM CDT Pure hypercholesterolemia DIABETIC EYE EXAM Routine 07/27/2022 HEPATITIS C ANTIBODY Routine 12/29/2021 8:21 AM CDT COLONOSCOPY Routine 07/18/2021 from Last 3 Months or Most Recently Relevant to Health Maintenance Results * PSA screen (08/30/2023 9:59 AM PLASTER MACHINE TENDER) PSA-Total 1.63 <=5.40 ng/mL DAVON ALFARO Comment: Interpretive Data AGE SEX REFERENCE INTERVAL 0 minutes-150 years Female None 0 minutes-49 years Male None 50-59 years Male 0-3.90 60-69 years Male 0-5.40 70-79 years Male 0-6.20 80-150 years Male 0-6.20 The Millie PSA Total assay procedure was used. Results from different manufacturers or methods may not be comparable. Serial testing should be performed using the same method. Current interpretive data last revised 22. Testing performed by: [facility], [address] [place] [address]., [id number] Blood 08/30/2023 9:59 AM PLASTER MACHINE TENDER 08/30/2023 11:42 AM PLASTER MACHINE TENDER Jani OVALLE LAB BLOOD ORDERABLES Final Resu lt Performing Organization Address [facility] Co de Phone Number [facility] [address] [facility] [email or web address] [address] * Albumin Creatinine Ratio, Urine (07/06/2023 2:51 PM CDT) Albumin Ur <12.0 mg/L DAVON Comment: Interpretive Data No reference range established. Current interpretive data was last revised 2019. Testing performed by: [address] [address] Creatinine Ur 53.7 mg/dL DAVON Comment: Interpretive Data No reference range established. Current interpretive data was last revised 2019. Testing performed by: [address] [address] Albumin Creatinine Ratio, Ur <22 1 - 29 mg/g DAVON Comment:Testing performed by : [address] [address] Urine 07/06/2023 2:51 PM CDT 07/06/2023 5:38 PM CDT Jani OVALLE LAB URINE ORDERABLES Final Resu lt Performing Organization Address [facility] Co de Phone Number [facility] [address] [facility] [place] [place] [address] * eGFR (07/06/2023 2:38 PM CDT) eGFR 60 mL/min/1. 73 m2 DAVON Comment: Interpretive Data Reference Interval Normal >/= 90 mL/min/1.73m2 Mildly decreased* 60 - 89 mL/min/1.73m2 Mildly to moderately decreased 45 - 59 mL/min/1.73m2 Moderately to severely decreased 30 - 44 mL/min/1.73m2 Severely decreased 15 - 29 mL/min/1.73m2 Kidney Failure < 15 mL/min/1.73m2 *Relative to young adult level Estimated glomerular filtration rate is determined by the 2020 CKD-EPI equation recommended by the National Kidney Foundation (A Unifying Approach to GFR Estimation: Recommendations of the NKF-ASK Task Force on Reassessing the Inclusion of Race in Diagnosing Kidney Disease, JASN 2020). The CKD-EPI equation should not be used for patients with unstable renal function and has not been validated in children and those over 70. Current interpretive data was last reviewed 2021. Testing performed by: [address] [address] Blood 07/06/2023 2:38 PM CDT 07/06/2023 5:44 PM CDT Jani OVALLE LAB BLOOD ORDERABLES Final Resu lt Performing Organization Address [facility] de Phone Number [place] [address] [facility] [employer] [place] [address] * (ABNORMAL) Hemoglobin A1c (07/06/2023 2:38 PM CDT) Hgb A1C 7.8(H) 4.0 - 5.6 % DAVON Comment:Testing performed by : [address] [address] Estimated Average Glucose 177 mg/dL DAVON Comment: The ADA recommends reporting an estimated Average Glucose (eAG) with all Hemoglobin A1c results using the equation derived from a study of 507 normal and diabetic adults. Minority populations were underrepresented and children were not included. (Diabetes Care 31:0342-2849, 2008). The eAG is not equivalent to a fasting glucose. Testing performed by: [address] [address] Blood 07/06/2023 2:38 PM CDT 07/06/2023 5:44 PM CDT Jani OVALLE LAB BLOOD ORDERABLES Final Resu lt Performing Organization Address [facility] Co de Phone Number [facility] [address] [facility] [place] [place] [address] * (ABNORMAL) Lipid panel (07/06/2023 2:38 PM CDT) Cholesterol 122 30 - 199 mg/dL DAVON Comment: Interpretive Data Ages < or = 19 years Acceptable: <170 mg/dL Borderline high: 170-199 mg/dL High: >or= 200 mg/dL Ages > or = 20 years Desirable: <200 mg/dL Borderline high: 200-239 mg/dL High: >or= 240 mg/dL Literature References: 1. Expert Panel on Integrated Guidelines for Cardiovascular Health and Risk Reduction in Children and Adolescents. Pediatrics 2011;128:S213 2. NCEP Expert Panel. Circulation 2004;110:227 Current Interpretive Data was last revised on 2018. Testing performed by: [address] [address] Triglycerides 182(H) <=149 mg/dL DAVON Comment: Interpretive Data Ages < or = 9 years Acceptable: <75 mg/dL Borderline high: 75-99 mg/dL High: >or= 100 mg/dL Ages 10 to 20 years Acceptable: <90 mg/dL Borderline high: 90-129 mg/dL High: >or= 130 mg/dL Ages > or = 20 years Desirable: <150 mg/dL Borderline high: 150-199 mg/dL High: 200-499 mg/dL Very high: >or= 499 mg/dL Literature References: 1. Expert Panel on Integrated Guidelines for Cardiovascular Health and Risk Reduction in Children and Adolescents. Pediatrics 2011;128:S213 2. NCEP Expert Panel. Circulation 2003;110:227 Current Interpretive Data was last revised on 2018. Testing performed by: [address] [address] HDL 31(L) >=40 mg/dL DAVON Comment: Interpretive Data Ages < or = 19 years Acceptable: >45 mg/dL Borderline low: 40-45 mg/dL Low: <40 mg/dL Ages > or = 20 years Desirable: >or= 60 mg/dL Low: <40 mg/dL Literature References: 1. Expert Panel on Integrated Guidelines for Cardiovascular Health and Risk Reduction in Children and Adolescents. Pediatrics 2011;128:S213 2. NCEP Expert Panel. Circulation 2004;110:227 Current Interpretive Data was last revised on 2018. Testing performed by: [address] [address] LDL, calculated 55 <=129 mg/dL DAVON Comment: Interpretive Data Ages < or = 19 years Acceptable: <110 mg/dL Borderline high: 110-129 mg/dL High: >or= 130 mg/dL Ages > or = 20 years Optimal: <100 mg/dL Near optimal: 100-129 mg/dL Borderline high: 130-159 mg/dL High: >160 mg/dL Literature References: 1. Expert Panel on Integrated Guidelines for Cardiovascular Health and Risk Reduction in Children and Adolescents. Pediatrics 2011;128:S213 2. NCEP Expert Panel. Circulation 2004;110:227 Current Interpretive Data was last revised on 2018. Testing performed by: [address] [address] Non-HDL Cholesterol 91 mg/dL DAVON Comment: Interpretive Data Ages < or = 19 years Acceptable: <120 mg/dL Borderline high: 120-144 mg/dL High: >145 mg/dL Ages > or = 20 years When triglycerides are >200 mg/dL, Non-HDL cholesterol is a secondary target of therapy with treatment goals that are 30 mg/dL greater than the LDL cholesterol target. Literature References: 1. Expert Panel on Integrated Guidelines for Cardiovascular Health and Risk Reduction in Children and Adolescents. Pediatrics 2011;128:S213 2. NCEP Expert Panel. Circulation 2004;110:227 Current Interpretive Data was last revised on 2018. Testing performed by: [address] [address] Chol/HDL ratio 4 DAVON Comment:Testing performed by : [address] [address] Blood 07/06/2023 2:38 PM CDT 07/06/2023 5:44 PM CDT us Jani [facility] BLOOD ORDERABLES Final Resu lt DAVON ALFARO [address] [facility] Department [place] [address] * Diabetic Eye Exam (07/27/2022) us Historical Provider HEALTH MAINTENANCE Final Result * Hepatitis C antibody (12/29/2021 8:21 AM CDT) Hep C Ab NON-REACTI VE NON-REACT SRINIVASAN [facility] SIGNAL TO CUT-OFF 0.01 <1.00 [facility] Comment: HCV antibody was non-reactive. There is no laboratory evidence of HCV infection. In most cases, no further action is required. However, if recent HCV exposure is suspected, a test for HCV RNA (test code 66632) is suggested. For additional information please refer to http://education.Companion Canine/faq/JBJ74v2 (This link is being provided for informational/ educational purposes only.) 12/29/2021 8:21 AM CDT 12/29/2021 8:24 AM CDT Narrative [facility] - 12/30/2021 2:04 PM CDT FASTING:YES FASTING: YES Jani [facility] MICROBIOLOGY - [facility] Final Result [facility] [address] [place] [address] * Colonoscopy (07/18/2021) Anatomical Region Laterality Modality Other Historical Provider ENDOSCOPY PROCEDURES Georgie l Result from Last 3 Months or Most Recently Relevant to Health Maintenance Insurance [employer] MEDICARE MEDICARE [facility] [id number] [facility] MEDICARE ADVANTAGE Care Teams Cleaning Laborer Relationship Specialty Start Date End Date Jani Bedoya PA PCP - General Family Medicine 06/28/21
--- OUTSIDE RECORDS SUMMARY | 2025-10-12 19:32 | XMS_ITS | Clinical Summary ---
Author Organization [facility] [id number] [facility] Address [address] [place] [address] Care Team Providers Care Photovoltaic Installer Name Role Phone Jani Bedoya Primary Care Provider [phone] Allergies No known active allergies Medications aspirin (ECOTRIN EC) 81 mg Tablet, Delayed Release (E.C.) Take 1 Tablet by mouth daily. 7 Active nortriptyline (PAMELOR) 25 mg capsule Take 25 mg by mouth daily. Take with a 10 mg tab to equal 35 mg HS 8 Active pantoprazole (PROTONIX) 40 mg Tablet, Delayed Release (E.C.) Take 40 mg by mouth daily. Active cyanocobalamin (VITAMIN B-12) 500 mcg tablet Take 1 Tablet by mouth daily. Active famotidine (PEPCID) 20 mg tablet Take 20 mg by mouth daily. Active metoprolol succinate (TOPROL XL) 50 mg Extended Release 24 hour tablet TAKE 1.5 TABLETS BY MOUTH DAILY 135 Tablet 1 2 Active Additional Information Patient taking differently: 50 mg DAILY, Reported on 12/23/2024 rizatriptan (MAXALT) 10 mg Tablet TAKE 1 TABLET AT ONSET OF MIGRAINE,MAY REPEAT 1 DOSE AFTER 2 HOURS IF NEEDED (MAX 2TABS/24HRS) 1 Active dapagliflozin propanediol (Farxiga) 10 mg Tablet Take 10 mg by mouth daily. Active rosuvastatin (CRESTOR) 40 mg tablet Take 1 tablet by mouth once daily 90 Tablet 3 4 Active nortriptyline (PAMELOR) 10 mg capsule Take 10 mg by mouth daily. 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 01/01/2019 Non-rheumatic mitral regurgitation 01/01/2019 Essential hypertension 01/01/2019 Hyperlipidemia 01/01/2019 Nonrheumatic aortic valve insufficiency 01/02/20 19 Encounters Date Type Department Care Team Description 09/29/2025 External Device Data [facility] ABSTRACTION Provider, Abstract 08/25/2025 External Device Data [facility] ABSTRACTION Provider, Abstract 08/18/2025 External Device Data [facility] ABSTRACTION Provider, Abstract from Last 3 Months Family History Medical History Relation Name Comments Hypertension Father Heart Disease Maternal Grandfather Stroke Mother Relation Name Status Comments Father Maternal Grandfather Mother Social History Tobacco Use Types Packs/Day Years Used Date Smoking Tobacco: Never Tobacco Cessation:Counseling Given: Not Answered Alcohol Use Standard Drinks/Week Comments Not Currently 0 (1 standard drink = 0.6 oz pur e alcohol) Sex and Gender Information Value Date Recorded Sex Assigned at Not on file 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 [employer]QUIPMENT Gender Identity Not on file Sexual Orientation Not on file Last Filed Vital Signs Vital Sign Reading Time Taken Comments Blood Pressure 110/60 12/23/2024 10:48 AM CDT Pulse 74 12/23/2024 10:48 AM CDT Temperature - - Respiratory Rate - - Oxygen Saturation - - Inhaled Oxygen Concentration - - Weight 90.3 kg (199 lb) 12/23/2024 10:48 AM CDT Height 167.6 cm (5' 6) 12/23/2024 10:48 AM CDT Body Mass Index 32.12 12/23/2024 10:48 AM CDT Plan of Treatment Upcoming Encounters Date Type Department Care Team (Late st Contact Info) Description 01/12/2026 10:45 AM CDT Office Visit [facility] Heart and Vascular - [address] [place] [phone] [place] [address] [place] [address] Health Maintenance Due Date Last Done Comments DIABETES ANNUAL FOOT EXAM 1973 DIABETES ANNUAL RETINAL EXAM 1973 DIABETES MICROALBUMIN ANNUAL SCREEN 1973 DTAP/TDAP/TD VACCINES (1 - Tdap) 1974 FIT-DNA Q 3 years 2000 FIT/FOBT Q 1 year 2000 Flex Sig/CT Colonography Q 5 years 2000 RSV VACCINE (60+ or ) (1 - Risk 50-74 years 1-dose series) 2005 ZOSTER VACCINE (1 of 2) 2005 DIABETES HBA1C Q 6 MONTHS 01/04/2024 07/06/2023 COVID-19 Vaccine ( - 2024-2 6 season) 2025 09/23/2023, 08/28/2022, 09/28/2021, Additional history exists LDL CHOLESTEROL ANNUAL 01/09/2026 , 07/14/2020, 01/08/2019 COLORECTAL SCREENING 07/18/2031 07/18/2021 Colorectal Cancer Screening 07/18/2031 PNEUMOCOCCAL VACCINE 50+ YEARS Completed 08/14/2022 , 06/28/2021 INFLUENZA VACCINE Completed 08/24/2025, , 08/30/2023, Additional history exists Procedures Procedure Name Priority Date/Time Associated Diagnosis Comments LIPID PANEL Routine 01/09/2025 8:26 AM CDT from Last 3 Months or Most Recently Relevant to Health Maintenance Results * LIPID PANEL (01/09/2025 8:26 AM CDT) Blood us Abstract Provider CHEMISTRY ORDERABLES Edited Re sult - Final from Last 3 Months or Most Recently Relevant to Health Maintenance Insurance [facility] Care Teams Photovoltaic Installer Relationship Specialty Start Date End Date Jani Bedoya PA [address] [place] [phone] PCP - General Diesel Maintenance Electrician 12/21/21
--- OUTSIDE RECORDS SUMMARY | 2025-10-12 19:32 | XMS_ITS | Patient Health Record ---
Author Organization [facility] Address [address] [facility] [address] [place] [address] Support Name Relationship Address Phone Anoop Lopez Guarantor Unknown [phone] Allergies No Known Allergies Reason For Referral No Information Medications Medication SIG (Take, Route, Frequency, Duration) Notes Start Date End Date Status Nortriptyline HCl 25 MG Oral Active Famotidine 20 MG take 1 tablet (20 mg ) by oral route once daily at bedtime Oral 1 Active Pantoprazole Sodium 40 MG take 1 tablet (40 mg) by oral route once daily Oral 1 Active Plan Of Treatment No Information Insurance Providers Payer Name Payer Address Payer Phone Subscriber Number Group Number Insured Name Patient Relationship to Insured Coverage Start Date Coverage End Date [employer] - Open Access [address] [place], [place] [id number] Anoop Lopez Self - patient is the insured 4
--- OUTSIDE RECORDS SUMMARY | 2025-10-12 19:32 | XMS_ITS | Encounter Summary ---
Author Organization [facility] Address [address] [place] [address] Care Team Providers Care Nuclear Weapons Custodian Name Role Phone Jani Bedoya Primary Care Provider [phone] Encounter Details Date Type Department Care Team (Late Contact Info) Description 06/27/2021 Refill [facility] Heart and Vascular - [address] [facility] [phone] [facility] [address] [place] [address] Daily Fuchs FNP [address] 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 [address] [place] [address] documented as of this encounter Visit Diagnoses Not on filedocumented in this encounter Care Teams Nuclear Weapons Custodian Relationship Specialty Start Date End Date Jani Bedoya PA [address] [place] [phone] PCP - General Lawn Sprinkler Installer 12/21/21 documented as of this encounter
[2025-10-12 19:36] VITALS: BP 159/70; PULSE 106; RESP 24; TEMP 37.1; O2SAT 97
--- NOTE | 2025-10-12 19:51 | ED.URI ---
HPI - URI/Sore Throat General Chief Complaint: Upper Respiratory Infection Stated Complaint: Cough Time Seen by Provider: 10/12/25 19:42 Source: patient and RN notes reviewed Mode of arrival: ambulatory Limitations: no limitations History of Present Illness HPI Narrative: 70-year-old male patient presents today complaining of 4 day history of cough, congestion, postnasal drip. Denies discomfort, fever, known sick contacts, shortness of breath. He has tried DayQuil and NyQuil with some mild relief. No history of asthma or COPD. He is a nonsmoker. Related Data Home Medications ?Medication ?Instructions ?Recorded ?Confirmed ?Last Taken ?Type aspirin 81 mg tablet,delayed 81 mg PO DAILY 02/11/20 06/11/23 05/20/23 History release (Adult Aspirin Regimen) nortriptyline 25 mg capsule 35 mg PO QHS 02/11/20 06/11/23 05/20/23 History pantoprazole 40 mg tablet,delayed 40 mg PO QAM 02/11/20 06/11/23 05/20/23 History release 05/20/23 rosuvastatin 40 mg tablet 40 mg PO DAILY 02/11/20 06/11/23 05/20/23 History chlorthalidone 25 mg tablet 12.5 mg PO EVERY OTHER DAY 03/16/20 06/11/23 05/19/23 History lisinopril 40 mg tablet 40 mg PO QHS 03/16/20 06/11/23 05/20/23 History famotidine 20 mg tablet (Pepcid) 20 mg PO QHS 11/01/20 06/11/23 05/20/23 History metoprolol succinate 100 mg 50 mg PO DAILY 11/01/21 06/11/23 05/20/23 History capsule sprinkle, ext. release 24 hr dapagliflozin propanediol 10 mg 10 mg PO DAILY 05/21/23 06/11/23 05/20/23 History tablet (Farxiga) nortriptyline 10 mg capsule 10 mg PO DAILY 05/21/23 06/11/23 05/20/23 History rizatriptan 10 mg tablet 10 mg PO PRN PRN migraine 05/21/23 06/11/23 Unknown History vitamin B complex (B 1 tablet PO DAILY 05/21/23 06/11/23 05/20/23 History Complex-Vitamin B12 tablet) Allergies Allergy/AdvReac Type Severity Reaction Status Date / Time No Known Allergies Allergy Verified 10/12/25 19:35 [facility] Past Medical History Medical History Hyperlipidemia Hypertension Diabetes last A1C 6.7 Cardiac arrhythmia Surgical History Surgical History Hx laparoscopic cholecystectomy Laparoscopic Cholecystectomy on 05/21/23 Hx of tonsillectomy Family History Family History Mother Hypertension Father Heart disease Grandparent Hypertension Diabetes mellitus Social History Social History Smoking status: Never smoker Alcohol intake: never Substance use: never Substance use type: does not use Lack of Transportation: No Lack of Food: Never True Current Housing: I Have Housing Concerned About Future Housing: No Difficulty Paying Gas/Electric Bills: No Difficulty Paying for Meds: No Currently Unemployed: No Education: Trade/Vocational Certificate Difficulty w/ Childcare or Family Care: No Living arrangements: with family Additional living arrangements comments: - [place] Occupation/Education: retired Additional occupation/education comments: retired [employer] Gender identity (if verbalized by the patient): Male Spiritual care concerns: No Comments At time of signature, I have reviewed and agree with nursing past medical, surgical, social and family history unless otherwise noted. Please see nursing chart for further information. There is no relevant family history pertinent to the presenting complaint Exam Narrative: GENERAL: Mildly-appearing, well-nourished, and in no acute distress. HEAD: Normocephalic, atraumatic. EYES: EOMI. No redness or drainage. Conjunctivae normal. ENT: Mucous membranes pink and moist. Nares congested with rhinorrhea. TMs normal bilaterally. Throat normal. Uvula midline. NECK: Normal AROM. Supple. No lymphadenopathy. CHEST: No respiratory distress. Clear to auscultation. HEART: Regular rate and rhythm. No murmur appreciated. EXTREMITIES: Normal range of motion. No edema. SKIN: Warm, dry, no rash. Capillary refill normal. Normal skin turgor. NEURO: No focal deficits. Alert and oriented x3. Gait steady. PSYCH: Normal affect. No signs of depression or anxiety. Course Course Level of Care: Express Care Visit Vital Signs Vital signs: Vital Signs Temperature 98.7 F 10/12/25 19:36 Pulse Rate 106 H 10/12/25 19:36 Respiratory Rate 24 H 10/12/25 19:36 Blood Pressure 159/70 H 10/12/25 19:36 Pulse Oximetry 97 10/12/25 19:36 Oxygen Delivery Room Air 10/12/25 19:36 Temperature 98.7 F 10/12/25 19:36 Pulse Rate 98 10/12/25 19:54 Respiratory Rate 18 10/12/25 19:54 Blood Pressure 159/70 H 10/12/25 19:36 Pulse Oximetry 97 10/12/25 19:36 Oxygen Delivery Room Air 10/12/25 19:36 Reviewed. Recheck of RR during exam, 18. [facility] Narrative Medical decision making narrative: 70-year-old male patient presents today complaining of 4 day history of cough, congestion, postnasal drip. Denies discomfort, fever, known sick contacts, shortness of breath. He has tried DayQuil and NyQuil with some mild relief. No history of asthma or COPD. He is a nonsmoker. Upon exam, patient is mildly ill appearing with nasal congestion, rhinorrhea. Patient would like to be tested for COVID and influenza as he watches his grandchildren with his . COVID influenza negative. Symptoms likely viral in etiology. Discussed [id number] medication use and duration of illness. No prescription medications indicated at this time. Anticipatory guidance given. Recheck of RR during exam was 18. Differential Diagnosis Differential Diagnosis: URI, influenza, COVID-19 Lab Data [facility] Lab Attestation statement: I personally reviewed the patient's lab results. Lab results narrative: COVID negative, influenza negative Critical Care Time Critical Care Time Critical Care Time: No Discharge Plan Discharge Clinical Impression: Upper respiratory infection Qualifiers: URI type: unspecified URI Qualified Code(s): J06.9 - Acute upper respiratory infection, unspecified Patient Disposition: Home Condition: Stable Instructions: Upper Respiratory Infection (DC) Additional Instructions: Your COVID-19 test and influenza tests are negative today. Your symptoms are likely due to a viral illness, which is not treated with antibiotics. Virus symptoms can last for up to 7-10days. Take Tylenol for pain or fever. You may continue the DayQuil and NyQuil if needed. Consider Flonase for your nasal congestion Rest and stay hydrated. Follow up with your PCP in 5 days if symptoms are not improving. Go to the ER immediately if you develop shortness of breath, difficulty swallowing, or any other concerning symptoms. Patient Language: Colombian Prescriptions: No Action aspirin [Adult Aspirin Regimen] 81 mg tablet,delayed release (DR/EC) 81 mg PO DAILY nortriptyline 25 mg capsule 35 mg PO QHS pantoprazole 40 mg tablet,delayed release (DR/EC) 40 mg PO QAM rosuvastatin 40 mg tablet 40 mg PO DAILY metoprolol succinate 100 mg capsule,sprinkle,ER 24hr 50 mg PO DAILY famotidine [Pepcid] 20 mg tablet 20 mg PO QHS lisinopril 40 mg Tablet 40 mg PO QHS chlorthalidone 25 mg tablet 12.5 mg PO EVERY OTHER DAY rizatriptan 10 mg tablet 10 mg PO PRN PRN (Reason: migraine) nortriptyline 10 mg capsule 10 mg PO DAILY vitamin B complex [B Complex-Vitamin B12] Tablet 1 tablet PO DAILY Farxiga 10 mg Tablet 10 mg PO DAILY Follow-up/Referrals: Aureliano,Jani Hunter PA-C [Primary Care Provider] Time of Disposition: 20:04
[2025-10-12 19:54] VITALS: PULSE 98; RESP 18
[2025-10-12 20:08] LABS: EDCOVIDSCREEN Negative (Negative); EDINFLUASCREEN Negative (Negative); EDINFLUBSCREEN Negative (Negative)
== END 2025-10-12 20:09 | disposition home or self-care (01) ==
PROVIDERS: Emergency Provider Nurse Practitioner; PCP Physician Assistant
DX: J06.9 Acute upper respiratory infection, unspecified (principal); Z20.822 Contact with and (suspected) exposure to COVID-19; E78.5 Hyperlipidemia, unspecified; I10 Essential (primary) hypertension; E11.9 Type 2 diabetes mellitus without complications; I49.9 Cardiac arrhythmia, unspecified
CPT/HCPCS: 87426; 87804; 99212; G0463